=== PATIENT | female | born 1935 | race Caucasian/White ===

== ENCOUNTER 2018-07-30 15:03 | Inpatient (IN) | payer MEDICARE, OTHER, MEDICAID ==
[2018-07-30] MEDS: DILTIAZEM-D5W 125MG/125ML DRIP 125 ML IV (15:10)
[2018-07-30 15:35] LABS: ADD MAN DIFF? NO
[2018-07-30] MEDS: SODIUM CHLORIDE 0.9% 1L BAG IV* (15:36)
[2018-07-30] MEDS: ACETAMINOPHEN 325 MG TAB PO (15:37)
[2018-07-30] MEDS: IBUPROFEN 800 MG TAB PO (15:37)
[2018-07-30] MEDS: ONDANSETRON 4 MG INJ IV (15:38)
[2018-07-30] MEDS: DILTIAZEM 25 MG INJ IV (15:38)
[2018-07-30 15:46] LABS: BASOPHILS % 0.1 % (0.0-2.0); HEMATOCRIT 32.3 % (37.0-47.0); HEMOGLOBIN 10.6 g/dl (12.0-16.0); LYMPHOCYTES % 9.2 % (15.0-51.0); MEAN CORPUSCULAR HGB CONC 32.8 g/dl (32.0-37.0); MEAN CORPUSCULAR VOLUME 97.6 fl (82.0-101.0); MEAN PLATELET VOLUME 8.8 fl (7.4-10.4); MONOCYTE # 0.7 10^3/ul (0.3-0.9); MONOCYTES % 6.5 % (0.0-11.0); NEUTROPHIL # 8.7 10^3/ul (1.6-7.5); NEUTROPHILS % 83.8 % (39.0-77.0); PLATELET COUNT 234 10^3/UL (140-415); RED BLOOD COUNT 3.31 10^6/ul (4.20-5.40); RED CELL DISTRIBUTION WIDTH 12.8 % (11.5-14.5)
[2018-07-30 15:46] LABS: WHITE BLOOD COUNT 10.4 10^3/ul (4.8-10.8)
[2018-07-30 16:04] LABS: ALANINE AMINOTRANSFERASE 11 IU/L (13-69); ALBUMIN 3.8 g/dl (3.3-4.9); ALKALINE PHOSPHATASE 78 IU/L (42-121); ANION GAP 10 (5-13); ASPARTATE AMINO TRANSFERASE 26 IU/L (15-46); BILIRUBIN,INDIRECT 0.3 mg/dl (0-1.1); BILIRUBIN,TOTAL 0.3 mg/dl (0.2-1.3); BLOOD UREA NITROGEN 20 mg/dl (7-20); CALCIUM 9.1 mg/dl (8.4-10.2); CARBON DIOXIDE 23 mmol/L (21-31); CHLORIDE 107 mmol/L (97-110); CREATININE 0.84 mg/dl (0.44-1.00); GLUCOSE 179 mg/dl (70-220); POTASSIUM 4.1 mmol/L (3.5-5.1); SODIUM 140 mmol/L (135-144); TOTAL PROTEIN 7.6 g/dl (6.1-8.1)
[2018-07-30 16:06] LABS: INR 1.06; PROTIME 13.9 Sec (11.9-14.9); PT RATIO 1.1
[2018-07-30 16:07] LABS: PARTIAL THROMBOPLASTIN TIME 26.3 Sec (23.0-35.0)
[2018-07-30 16:15] LABS: TROPONIN-I 0.066 ng/ml (0.000-0.120)
[2018-07-30] MEDS: CEFEPIME 2GM/50 ML (PMX) 50 ML IVPB (17:18)
[2018-07-30] MEDS ORDERED: ACETAMINOPHEN 325 MG TAB PO ×2 (17:30→19:30)
[2018-07-30 17:32] LABS: ADD UMIC YES; UR ASCORBIC ACID NEGATIVE (NEGATIVE); UR BILIRUBIN (Dip) NEGATIVE (NEGATIVE); UR BLOOD (Dip) 1+ mg/dL (NEGATIVE); UR CLARITY SLIGHTLY CLOUDY (CLEAR); UR COLOR YELLOW (YELLOW); UR GLUCOSE (Dip) NEGATIVE (NEGATIVE); UR KETONES (Dip) NEGATIVE (NEGATIVE); UR LEUKOCYTE ESTERASE (Dip) 2+ Leu/ul (NEGATIVE); UR MUCUS FEW /HPF (NONE SEEN); UR NITRITE (Dip) NEGATIVE (NEGATIVE); UR RBC 9 /HPF (0-5); UR SPECIFIC GRAVITY (Dip) 1.019 (1.003-1.030); UR SQUAMOUS EPITHELIAL CELL FEW /HPF (FEW); UR TOTAL PROTEIN (Dip) 1+ mg/dl (NEGATIVE); UR UROBILINOGEN (Dip) 1+ mg/dL (NEGATIVE); UR WBC 49 /HPF (0-5)
[2018-07-30] MEDS: VANCOMYCIN 1 GM (PMX) 250 ML IVPB (17:47)
[2018-07-30] MEDS: SOD CHLORIDE 0.9% 1,000 ML IV ×2 (18:36→19:11)
[2018-07-30] MEDS ORDERED: ONDANSETRON 4 MG INJ IV (19:30)
[2018-07-30] MEDS ORDERED: NACL 0.9% 3 ML SYG IV (19:30)
[2018-07-30] MEDS ORDERED: AZITHROMYCIN 500MG/NS (PMX) 250 ML IVPB (20:00)
[2018-07-30 20:09] LABS: LACTIC ACID 1.2 mmol/L (0.5-2.0)
[2018-07-30] MEDS: CEFTRIAXONE 1 GM/50 ML (PMX) 50 ML IVPB (22:00)
[2018-07-30] MEDS: HYDROCODONE/APAP (5/325) TAB PO (22:07)
[2018-07-30] MEDS: INSULIN ASPART [NOVOLOG] 3 ML PEN SC (23:28)
[2018-07-30] MEDS: morphine 2 MG INJ IV (23:33)
[2018-07-30 23:57] LABS: AADO2 Arterial 275.6 mmHg (7.0-24.0); Allen Test ACCEPTAB; Arterial Base Excess -20.5 mmol/L (-3.0-3); Arterial Blood Gas Oxygen Sat 95.1 mmHG (95.0-100.0); Arterial COHb 0.2 % (0.0-3.0); Arterial Fraction of Oxyhgb 94.8 % (93.0-99.0); Arterial MetHb 0.1 % (0.0-1.5); MODE MASK - SIMPLE; Site Right Radial
[2018-07-31] MEDS ORDERED: NITROGLYCERIN (SL) 0.4 MG TAB SL
[2018-07-31] MEDS: ALBUTEROL/IPRATROPIUM (NEB) 3 ML AMP HHN ×5 (00:08→20:56)
[2018-07-31] MEDS: SOD CHLORIDE 0.9% 500 ML IV (00:15)
[2018-07-31] MEDS: NA BICARBONATE 8.4% 50 ML SYG IV ×2 (00:17→12:57)
[2018-07-31] MEDS ORDERED: PIPER-TAZO 3.375 GM IV (PMX) 100 ML IVPB (00:30)
[2018-07-31] MEDS: PIPER-TAZO 2.25 GM/NS 50 ML IVPB ×4 (00:33→17:37)
[2018-07-31 01:30] LABS: ALANINE AMINOTRANSFERASE 52 IU/L (13-69); ALBUMIN 2.5 g/dl (3.3-4.9); ALBUMIN/GLOBULIN RATIO 0.92; ALKALINE PHOSPHATASE 77 IU/L (42-121); ANION GAP 13 (5-13); ASPARTATE AMINO TRANSFERASE 65 IU/L (15-46); BILIRUBIN,INDIRECT 0.2 mg/dl (0-1.1); BILIRUBIN,TOTAL 0.2 mg/dl (0.2-1.3); BLOOD UREA NITROGEN 23 mg/dl (7-20); CALCIUM 7.7 mg/dl (8.4-10.2); CARBON DIOXIDE 19 mmol/L (21-31); CHLORIDE 112 mmol/L (97-110); CREATININE 1.22 mg/dl (0.44-1.00); GLUCOSE 300 mg/dl (70-220); POTASSIUM 4.8 mmol/L (3.5-5.1); SODIUM 144 mmol/L (135-144); TOTAL PROTEIN 5.2 g/dl (6.1-8.1)
[2018-07-31 01:35] LABS: LACTIC ACID 7.9 mmol/L (0.5-2.0)
[2018-07-31 01:38] LABS: B-TYPE NATRIURETIC PEPTIDE 13500 PG/ML (0-450)
[2018-07-31] MEDS: ACCU-CHEK XX (01:41)
[2018-07-31] MEDS: INSULIN ASPART [NOVOLOG] 3 ML PEN SC ×5 (01:55→20:24)
[2018-07-31] MEDS ORDERED: HEPARIN 1000 UNITS/ML 10 ML INJ IV (02:00)
[2018-07-31] MEDS ORDERED: HEPARIN 25000 UNITS/250 ML 250 ML (02:06)
[2018-07-31 02:20] LABS: ADD MAN DIFF? NO
[2018-07-31] MEDS: METHYLPREDNISOLONE 125 MG INJ IV (02:20)
[2018-07-31] MEDS: HEPARIN 1000 UNITS/ML 10 ML INJ IV (02:21)
[2018-07-31 02:24] LABS: BASOPHILS % 0.2 % (0.0-2.0); HEMATOCRIT 30.9 % (37.0-47.0); HEMOGLOBIN 9.7 g/dl (12.0-16.0); LYMPHOCYTES # 1.9 10^3/ul (0.8-2.9); LYMPHOCYTES % 14.3 % (15.0-51.0); MEAN CORPUSCULAR HEMOGLOBIN 32.1 pg (29.0-33.0); MEAN CORPUSCULAR HGB CONC 31.4 g/dl (32.0-37.0); MEAN CORPUSCULAR VOLUME 102.3 fl (82.0-101.0); MEAN PLATELET VOLUME 9.4 fl (7.4-10.4); MONOCYTE # 0.9 10^3/ul (0.3-0.9); MONOCYTES % 7.2 % (0.0-11.0); NEUTROPHILS % 77.4 % (39.0-77.0); PLATELET COUNT 192 10^3/UL (140-415); RED BLOOD COUNT 3.02 10^6/ul (4.20-5.40); RED CELL DISTRIBUTION WIDTH 13.2 % (11.5-14.5)
[2018-07-31] MEDS: HEPARIN 25000 UNITS/250 ML 250 ML IV (02:24)
[2018-07-31 02:35] LABS: AADO2 Arterial 296.7 mmHg (7.0-24.0); Allen Test ACCEPTAB; Arterial Base Excess -10.6 mmol/L (-3.0-3); Arterial COHb 0.2 % (0.0-3.0); Arterial Fraction of Oxyhgb 95.5 % (93.0-99.0); Arterial HCO3 15.5 mmol/L (22.0-26.0); Arterial MetHb 0.3 % (0.0-1.5); Arterial pCO2 35.2 mmhg (35-45); MODE SIMPLE MASK; Site Right Radial
[2018-07-31 02:46] LABS: INR 1.45; PROTIME 17.7 Sec (11.9-14.9); PT RATIO 1.4
[2018-07-31 02:47] LABS: PARTIAL THROMBOPLASTIN TIME 28.9 Sec (23.0-35.0)
[2018-07-31] MEDS: ONDANSETRON 4 MG INJ IV (04:49)
[2018-07-31] MEDS: SOD CHLORIDE 0.9% 1,000 ML IV ×2 (04:54→06:00)
[2018-07-31 05:25] LABS: ADD MAN DIFF? NO
[2018-07-31 05:32] LABS: WHITE BLOOD COUNT 10.4 10^3/ul (4.8-10.8)
[2018-07-31 05:32] LABS: BASOPHILS % 0.1 % (0.0-2.0); HEMATOCRIT 31.7 % (37.0-47.0); HEMOGLOBIN 9.9 g/dl (12.0-16.0); LYMPHOCYTES # 1.4 10^3/ul (0.8-2.9); LYMPHOCYTES % 13.7 % (15.0-51.0); MEAN CORPUSCULAR HEMOGLOBIN 32.9 pg (29.0-33.0); MEAN CORPUSCULAR HGB CONC 31.2 g/dl (32.0-37.0); MEAN CORPUSCULAR VOLUME 105.3 fl (82.0-101.0); MEAN PLATELET VOLUME 9.6 fl (7.4-10.4); MONOCYTE # 0.6 10^3/ul (0.3-0.9); MONOCYTES % 5.5 % (0.0-11.0); NEUTROPHIL # 8.3 10^3/ul (1.6-7.5); NEUTROPHILS % 80.1 % (39.0-77.0); PLATELET COUNT 167 10^3/UL (140-415); RED BLOOD COUNT 3.01 10^6/ul (4.20-5.40); RED CELL DISTRIBUTION WIDTH 13.2 % (11.5-14.5)
[2018-07-31 05:41] LABS: HEMOGLOBIN A1C 5.7 % (0-5.9)
[2018-07-31 05:57] LABS: ANION GAP 18 (5-13); BLOOD UREA NITROGEN 22 mg/dl (7-20); CALCIUM 7.3 mg/dl (8.4-10.2); CARBON DIOXIDE 16 mmol/L (21-31); CHLORIDE 109 mmol/L (97-110); CHOL/HDL RATIO 2.4 RATIO; CHOLESTEROL 71 mg/dl (100-200); CREATININE 1.47 mg/dl (0.44-1.00); GLUCOSE 264 mg/dl (70-220); HDL CHOLESTEROL 29 mg/dl (33-92); LDL CHOLESTEROL,CALCULATED 28 mg/dl; MAGNESIUM 1.8 mg/dl (1.7-2.5); PHOSPHORUS 4.8 mg/dl (2.5-4.9); SODIUM 143 mmol/L (135-144); TRIGLYCERIDES 69 mg/dl (0-149)
[2018-07-31 06:10] LABS: FREE THYROXINE INDEX (Calc) 3.62 ug/ml (0.65-3.89); T3 UPTAKE 52.5 % (23.5-40.5); T4 (THYROXINE) 6.9 ug/dl (5.5-11.0)
[2018-07-31] MEDS ORDERED: ALBUTEROL/IPRATROPIUM (NEB) 3 ML AMP HHN ×2 (08:00)
[2018-07-31] MEDS: ASPIRIN 81 MG TAB PO (09:00)
[2018-07-31] MEDS ORDERED: ENOXAPARIN 40 MG/0.4 ML SYG SC (09:00)
[2018-07-31 09:09] LABS: PARTIAL THROMBOPLASTIN TIME 126.1 Sec (23.0-35.0)
[2018-07-31] MEDS: BUDESONIDE (NEB) 0.5MG/2ML AMP HHN ×2 (09:59→20:56)
[2018-07-31] MEDS: MAGNESIUM SULFATE 2 GM/50 ML 50 ML IVPB (11:21)
[2018-07-31] MEDS: morphine 2 MG INJ IV ×2 (11:21→11:59)
[2018-07-31 11:22] LABS: LACTIC ACID 2.9 mmol/L (0.5-2.0)
[2018-07-31 12:09] LABS: AADO2 Arterial 234.6 mmHg (7.0-24.0); Allen Test ACCEPTAB; Arterial Base Excess -9.1 mmol/L (-3.0-3); Arterial Blood Gas Oxygen Sat 92.1 mmHG (95.0-100.0); Arterial COHb 0 % (0.0-3.0); Arterial Fraction of Oxyhgb 92.1 % (93.0-99.0); Arterial MetHb 0 % (0.0-1.5); Arterial pCO2 43.5 mmhg (35-45); MODE MASK - VENTI; Site Left Radial
[2018-07-31] MEDS: INSULIN GLARGINE [LANTus] (100 UNITS/ML) SYG SC (14:14)
[2018-07-31] MEDS: SODIUM BICARBONATE (IV ADD) 100 MEQ in SOD CHLORIDE 0.45% 1,000 ML IV (16:35)
[2018-07-31 16:42] LABS: SODIUM,URINE RANDOM 56 mmol/L (30-90)
[2018-07-31 16:44] LABS: CREATININE,URINE RANDOM 135.23 mg/dl (20-320); PROTEIN/CREAT RATIO 0.85 RATIO
[2018-07-31 16:45] LABS: LACTIC ACID 1.6 mmol/L (0.5-2.0)
[2018-07-31 17:08] LABS: PARTIAL THROMBOPLASTIN TIME 113.2 Sec (23.0-35.0)
[2018-07-31] MEDS: CLOPIDOGREL 75 MG TAB PO (17:17)
[2018-07-31] MEDS: ATORVASTATIN 80 MG TAB PO (20:21)
[2018-08-01] MEDS: PIPER-TAZO 2.25 GM/NS 50 ML IVPB ×5 (00:10→23:52)
[2018-08-01 00:41] LABS: PARTIAL THROMBOPLASTIN TIME 47.3 Sec (23.0-35.0)
[2018-08-01] MEDS: ACCU-CHEK XX (02:07)
[2018-08-01] MEDS: ALBUTEROL/IPRATROPIUM (NEB) 3 ML AMP HHN ×5 (02:58→19:29)
[2018-08-01 05:13] LABS: ADD MAN DIFF? NO
[2018-08-01] MEDS: SODIUM BICARBONATE (IV ADD) 100 MEQ in SOD CHLORIDE 0.45% 1,000 ML IV (05:15)
[2018-08-01 05:17] LABS: BASOPHILS % 0.2 % (0.0-2.0); HEMATOCRIT 28.3 % (37.0-47.0); HEMOGLOBIN 9.4 g/dl (12.0-16.0); LYMPHOCYTES % 7.5 % (15.0-51.0); MEAN CORPUSCULAR HEMOGLOBIN 32.4 pg (29.0-33.0); MEAN CORPUSCULAR HGB CONC 33.2 g/dl (32.0-37.0); MEAN CORPUSCULAR VOLUME 97.6 fl (82.0-101.0); MEAN PLATELET VOLUME 10.1 fl (7.4-10.4); MONOCYTE # 0.5 10^3/ul (0.3-0.9); MONOCYTES % 4.1 % (0.0-11.0); NEUTROPHIL # 11.1 10^3/ul (1.6-7.5); NEUTROPHILS % 87.1 % (39.0-77.0); PLATELET COUNT 158 10^3/UL (140-415)
[2018-08-01 05:17] LABS: WHITE BLOOD COUNT 12.7 10^3/ul (4.8-10.8)
[2018-08-01 05:34] LABS: INR 1.75; PROTIME 20.5 Sec (11.9-14.9); PT RATIO 1.6
[2018-08-01 05:43] LABS: CREATINE KINASE 143 IU/L (23-200)
[2018-08-01] MEDS: morphine 2 MG INJ IV (05:50)
[2018-08-01 05:51] LABS: ANION GAP 13 (5-13); BLOOD UREA NITROGEN 27 mg/dl (7-20); CALCIUM 7.9 mg/dl (8.4-10.2); CARBON DIOXIDE 26 mmol/L (21-31); CHLORIDE 103 mmol/L (97-110); CREATINE KINASE 142 IU/L (23-200); CREATININE 1.41 mg/dl (0.44-1.00); GLUCOSE 161 mg/dl (70-220); MAGNESIUM 2.2 mg/dl (1.7-2.5); POTASSIUM 3.9 mmol/L (3.5-5.1); SODIUM 142 mmol/L (135-144)
[2018-08-01 05:51] LABS: URIC ACID 6.9 mg/dl (3.1-7.9)
[2018-08-01 05:56] LABS: CK INDEX 4.9; CK-MB 7.02 ng/ml (0.0-2.4)
[2018-08-01 06:48] LABS: PARTIAL THROMBOPLASTIN TIME 55.5 Sec (23.0-35.0)
[2018-08-01 07:34] LABS: AADO2 Arterial 172.2 mmHg (7.0-24.0); Arterial Base Excess -0.7 mmol/L (-3.0-3); Arterial Blood Gas Oxygen Sat 90.5 mmHG (95.0-100.0); Arterial COHb 0.1 % (0.0-3.0); Arterial Fraction of Oxyhgb 90.4 % (93.0-99.0); Arterial HCO3 23.9 mmol/L (22.0-26.0); Arterial MetHb 0 % (0.0-1.5); MODE NASAL CANNULA; Site Right Brachial
[2018-08-01] MEDS: INSULIN ASPART [NOVOLOG] 3 ML PEN SC ×4 (08:37→21:02)
[2018-08-01] MEDS: ASPIRIN 81 MG TAB PO ×2 (08:37→08:50)
[2018-08-01] MEDS: INSULIN GLARGINE [LANTus] (100 UNITS/ML) SYG SC (08:37)
[2018-08-01] MEDS: BUDESONIDE (NEB) 0.5MG/2ML AMP HHN ×2 (09:17→19:29)
[2018-08-01] MEDS ORDERED: LIDOCAINE 1% (MDV) 20 ML INJ (10:04)
[2018-08-01] MEDS ORDERED: IODIXANOL LOCM 100 ML BTL (10:04)
[2018-08-01] MEDS ORDERED: MIDAZOLAM 1 MG/ML 2 ML INJ (10:05)
[2018-08-01] MEDS ORDERED: FENTAnyl 50 MCG/ML VIAL (10:05)
[2018-08-01] MEDS ORDERED: FUROSEMIDE 40 MG INJ (10:56)
[2018-08-01] MEDS: HOLD all METFORMIN and METFORMIN CONTAINING medications for 48 hours post procedure. Chec XX (11:30)
[2018-08-01] MEDS: SOD CHLORIDE 0.9% 1,000 ML IV (11:47)
[2018-08-01] MEDS ORDERED: GLUCOSE GEL 15 GRAM TUBE BUCCAL (12:00)
[2018-08-01] MEDS ORDERED: DEXTROSE 50% 50 ML SYRINGE IV ×2 (12:00)
[2018-08-01] MEDS ORDERED: GLUCOSE GEL 15 GRAM TUBE PO ×2 (12:00)
[2018-08-01] MEDS ORDERED: GLUCAGON 1 MG INJ IM (12:00)
[2018-08-01] MEDS: ATORVASTATIN 80 MG TAB PO (21:01)
[2018-08-01] MEDS: FUROSEMIDE 40 MG INJ IV (21:33)
[2018-08-02] MEDS: ALBUTEROL/IPRATROPIUM (NEB) 3 ML AMP HHN ×4 (01:07→20:15)
[2018-08-02] MEDS: ACCU-CHEK XX (01:44)
[2018-08-02] MEDS: INSULIN ASPART [NOVOLOG] 3 ML PEN SC ×5 (02:13→21:00)
[2018-08-02 03:51] LABS: ADD MAN DIFF? NO
[2018-08-02] MEDS ORDERED: METOPROLOL 5 MG INJ (03:58)
[2018-08-02] MEDS: METOPROLOL 5 MG INJ IV ×3 (04:04→05:34)
[2018-08-02 04:10] LABS: WHITE BLOOD COUNT 11.7 10^3/ul (4.8-10.8)
[2018-08-02 04:10] LABS: BASOPHILS % 0.1 % (0.0-2.0); HEMATOCRIT 28.2 % (37.0-47.0); HEMOGLOBIN 9.3 g/dl (12.0-16.0); LYMPHOCYTES % 8.6 % (15.0-51.0); MEAN CORPUSCULAR HEMOGLOBIN 32.2 pg (29.0-33.0); MEAN CORPUSCULAR VOLUME 97.6 fl (82.0-101.0); MEAN PLATELET VOLUME 10.3 fl (7.4-10.4); MONOCYTE # 0.6 10^3/ul (0.3-0.9); MONOCYTES % 5.4 % (0.0-11.0); NEUTROPHILS % 85.1 % (39.0-77.0); PLATELET COUNT 154 10^3/UL (140-415); RED BLOOD COUNT 2.89 10^6/ul (4.20-5.40); RED CELL DISTRIBUTION WIDTH 13.4 % (11.5-14.5)
[2018-08-02 04:19] LABS: PHOSPHORUS 3.1 mg/dl (2.5-4.9)
[2018-08-02 04:19] LABS: MAGNESIUM 1.9 mg/dl (1.7-2.5)
[2018-08-02 04:20] LABS: ANION GAP 12 (5-13); BLOOD UREA NITROGEN 29 mg/dl (7-20); CALCIUM 8.7 mg/dl (8.4-10.2); CARBON DIOXIDE 32 mmol/L (21-31); CHLORIDE 98 mmol/L (97-110); CREATININE 1.36 mg/dl (0.44-1.00); GLUCOSE 150 mg/dl (70-220); POTASSIUM 3.7 mmol/L (3.5-5.1); SODIUM 142 mmol/L (135-144)
[2018-08-02] MEDS: morphine 2 MG INJ IV ×2 (04:32→13:38)
[2018-08-02] MEDS: PIPER-TAZO 2.25 GM/NS 50 ML IVPB ×3 (05:59→17:11)
[2018-08-02] MEDS ORDERED: DIGOXIN 500 MCG INJ IV ×2 (07:00→11:00)
[2018-08-02] MEDS: AMIODARONE 150MG/D5W BOLUS 100 ML IV (08:09)
[2018-08-02] MEDS: ASPIRIN 81 MG TAB PO (08:13)
[2018-08-02] MEDS: POTASSIUM CHLORIDE (SR) 20 MEQ TAB PO (08:13)
[2018-08-02] MEDS: AMIODARONE 900 MG in DEXTROSE 5% 482 ML IV (08:21)
[2018-08-02] MEDS: INSULIN GLARGINE [LANTus] (100 UNITS/ML) SYG SC (08:28)
[2018-08-02] MEDS: ENOXAPARIN 60 MG/0.6 ML SYG SC ×2 (08:28→21:12)
[2018-08-02] MEDS: BUDESONIDE (NEB) 0.5MG/2ML AMP HHN ×2 (08:31→20:15)
[2018-08-02] MEDS: HOLD all METFORMIN and METFORMIN CONTAINING medications for 48 hours post procedure. Chec XX (11:30)
[2018-08-02] MEDS: FUROSEMIDE 40 MG INJ IV (14:20)
[2018-08-02] MEDS: ATORVASTATIN 80 MG TAB PO (21:00)
[2018-08-03] MEDS: PIPER-TAZO 2.25 GM/NS 50 ML IVPB ×5 (00:14→23:31)
[2018-08-03] MEDS: ALBUTEROL/IPRATROPIUM (NEB) 3 ML AMP HHN ×4 (01:27→20:05)
[2018-08-03] MEDS: ACCU-CHEK XX (02:00)
[2018-08-03 05:01] LABS: ADD MAN DIFF? NO
[2018-08-03 05:03] LABS: BASOPHILS % 0.1 % (0.0-2.0); EOSINOPHILS % 0.2 % (0.0-7.0); HEMATOCRIT 30.6 % (37.0-47.0); HEMOGLOBIN 9.9 g/dl (12.0-16.0); LYMPHOCYTES # 0.9 10^3/ul (0.8-2.9); MEAN CORPUSCULAR HGB CONC 32.4 g/dl (32.0-37.0); MEAN PLATELET VOLUME 10.2 fl (7.4-10.4); MONOCYTE # 0.6 10^3/ul (0.3-0.9); MONOCYTES % 6.4 % (0.0-11.0); NEUTROPHIL # 7.1 10^3/ul (1.6-7.5); NEUTROPHILS % 82.7 % (39.0-77.0); NUCLEATED RED BLOOD CELLS% 0.2 /100WBC (0.0-0.0); PLATELET COUNT 143 10^3/UL (140-415); RED BLOOD COUNT 3.09 10^6/ul (4.20-5.40); RED CELL DISTRIBUTION WIDTH 13.3 % (11.5-14.5)
[2018-08-03 05:03] LABS: WHITE BLOOD COUNT 8.5 10^3/ul (4.8-10.8)
[2018-08-03 05:23] LABS: INR 1.61; PROTIME 19.2 Sec (11.9-14.9); PT RATIO 1.5
[2018-08-03 05:53] LABS: CREATINE KINASE 108 IU/L (23-200)
[2018-08-03 05:56] LABS: ALBUMIN 3.2 g/dl (3.3-4.9); ALBUMIN/GLOBULIN RATIO 0.91; ALKALINE PHOSPHATASE 150 IU/L (42-121); ANION GAP 10 (5-13); BILIRUBIN,INDIRECT 0.4 mg/dl (0-1.1); BILIRUBIN,TOTAL 0.4 mg/dl (0.2-1.3); BLOOD UREA NITROGEN 28 mg/dl (7-20); CALCIUM 8.6 mg/dl (8.4-10.2); CARBON DIOXIDE 32 mmol/L (21-31); CHLORIDE 100 mmol/L (97-110); CREATININE 1.08 mg/dl (0.44-1.00); GLUCOSE 77 mg/dl (70-220); MAGNESIUM 1.6 mg/dl (1.7-2.5); POTASSIUM 3.3 mmol/L (3.5-5.1); SODIUM 142 mmol/L (135-144); TOTAL PROTEIN 6.7 g/dl (6.1-8.1)
[2018-08-03 06:03] LABS: B-TYPE NATRIURETIC PEPTIDE 22400 PG/ML (0-450)
[2018-08-03 06:05] LABS: CK INDEX 3.2
[2018-08-03 06:22] LABS: ALANINE AMINOTRANSFERASE 2059 IU/L (13-69); ASPARTATE AMINO TRANSFERASE 949 IU/L (15-46)
[2018-08-03] MEDS: ASPIRIN 81 MG TAB PO (08:11)
[2018-08-03] MEDS: INSULIN GLARGINE [LANTus] (100 UNITS/ML) SYG SC (09:00)
[2018-08-03] MEDS: BUDESONIDE (NEB) 0.5MG/2ML AMP HHN ×2 (09:00→20:05)
[2018-08-03 09:21] LABS: AADO2 Arterial 314.4 mmHg (7.0-24.0); Allen Test ACCEPTAB; Arterial Blood Gas Oxygen Sat 92.4 mmHG (95.0-100.0); Arterial COHb 0.3 % (0.0-3.0); Arterial Fraction of Oxyhgb 92.1 % (93.0-99.0); Arterial MetHb 0 % (0.0-1.5); Arterial pCO2 38.5 mmhg (35-45); MODE MASK - BIPAP; Site Right Radial
[2018-08-03] MEDS: POTASSIUM CHLORIDE 100 ML IVPB (09:24)
[2018-08-03] MEDS: MAGNESIUM SULFATE 2 GM/50 ML 50 ML IVPB ×2 (09:25→13:02)
[2018-08-03] MEDS: FUROSEMIDE 40 MG INJ IV ×2 (09:25→18:31)
[2018-08-03] MEDS: ENOXAPARIN 60 MG/0.6 ML SYG SC ×2 (09:30→20:38)
[2018-08-03] MEDS: AMIODARONE 150MG/D5W BOLUS 100 ML IV (10:33)
[2018-08-03] MEDS: DILTIAZEM 25 MG INJ IV ×2 (10:33→17:21)
[2018-08-03] MEDS: AMIODARONE 900 MG in DEXTROSE 5% 482 ML IV (10:47)
[2018-08-03] MEDS: INSULIN ASPART [NOVOLOG] 3 ML PEN SC ×3 (12:00→23:30)
[2018-08-03] MEDS: POTASSIUM CHLORIDE 50 ML IVPB ×4 (12:30→19:46)
[2018-08-03] MEDS ORDERED: DILTIAZEM-D5W 125MG/125ML DRIP 125 ML IV (17:30)
[2018-08-03] MEDS: ATORVASTATIN 80 MG TAB PO (20:34)
[2018-08-04] MEDS: ALBUTEROL/IPRATROPIUM (NEB) 3 ML AMP HHN ×4 (01:11→19:57)
[2018-08-04 05:21] LABS: ADD MAN DIFF? NO
[2018-08-04 05:29] LABS: WHITE BLOOD COUNT 8.5 10^3/ul (4.8-10.8)
[2018-08-04 05:29] LABS: BASOPHILS % 0.1 % (0.0-2.0); EOSINOPHILS # 0.1 10^3/ul (0.0-0.5); EOSINOPHILS % 0.7 % (0.0-7.0); HEMATOCRIT 29.8 % (37.0-47.0); HEMOGLOBIN 9.6 g/dl (12.0-16.0); LYMPHOCYTES # 0.8 10^3/ul (0.8-2.9); LYMPHOCYTES % 9.2 % (15.0-51.0); MEAN CORPUSCULAR HEMOGLOBIN 31.5 pg (29.0-33.0); MEAN CORPUSCULAR HGB CONC 32.2 g/dl (32.0-37.0); MEAN CORPUSCULAR VOLUME 97.7 fl (82.0-101.0); MEAN PLATELET VOLUME 9.9 fl (7.4-10.4); MONOCYTE # 0.7 10^3/ul (0.3-0.9); MONOCYTES % 8.6 % (0.0-11.0); NEUTROPHIL # 6.9 10^3/ul (1.6-7.5); NEUTROPHILS % 80.9 % (39.0-77.0); NUCLEATED RED BLOOD CELLS% 0.2 /100WBC (0.0-0.0); PLATELET COUNT 167 10^3/UL (140-415); RED BLOOD COUNT 3.05 10^6/ul (4.20-5.40)
[2018-08-04] MEDS: PIPER-TAZO 2.25 GM/NS 50 ML IVPB ×4 (05:29→23:50)
[2018-08-04] MEDS: FUROSEMIDE 40 MG INJ IV ×2 (05:29→18:04)
[2018-08-04] MEDS: INSULIN ASPART [NOVOLOG] 3 ML PEN SC ×3 (05:35→18:00)
[2018-08-04 06:03] LABS: ALBUMIN 2.8 g/dl (3.3-4.9); ALBUMIN/GLOBULIN RATIO 0.87; ALKALINE PHOSPHATASE 134 IU/L (42-121); ANION GAP 8 (5-13); ASPARTATE AMINO TRANSFERASE 205 IU/L (15-46); BILIRUBIN,INDIRECT 0.6 mg/dl (0-1.1); BILIRUBIN,TOTAL 0.6 mg/dl (0.2-1.3); BLOOD UREA NITROGEN 27 mg/dl (7-20); CALCIUM 8.3 mg/dl (8.4-10.2); CARBON DIOXIDE 32 mmol/L (21-31); CHLORIDE 102 mmol/L (97-110); GLUCOSE 130 mg/dl (70-220); MAGNESIUM 2.2 mg/dl (1.7-2.5); POTASSIUM 3.4 mmol/L (3.5-5.1); SODIUM 142 mmol/L (135-144)
[2018-08-04 06:05] LABS: B-TYPE NATRIURETIC PEPTIDE 17300 PG/ML (0-450)
[2018-08-04 06:19] LABS: ALANINE AMINOTRANSFERASE 1073 IU/L (13-69)
[2018-08-04] MEDS: POTASSIUM CHLORIDE 50 ML IVPB ×2 (06:48→09:48)
[2018-08-04 08:19] LABS: AADO2 Arterial 277.4 mmHg (7.0-24.0); Allen Test ACCEPTAB; Arterial Base Excess 3.8 mmol/L (-3.0-3); Arterial Blood Gas Oxygen Sat 94.1 mmHG (95.0-100.0); Arterial COHb 0.7 % (0.0-3.0); Arterial Fraction of Oxyhgb 93.3 % (93.0-99.0); Arterial HCO3 27.7 mmol/L (22.0-26.0); Arterial MetHb 0.1 % (0.0-1.5); Arterial pCO2 39.4 mmhg (35-45); MODE HFNC; Site Right Radial
[2018-08-04] MEDS: BUDESONIDE (NEB) 0.5MG/2ML AMP HHN ×2 (08:28→19:57)
[2018-08-04] MEDS: INSULIN GLARGINE [LANTus] (100 UNITS/ML) SYG SC (08:42)
[2018-08-04 09:20] LABS: PHOSPHORUS 2.7 mg/dl (2.5-4.9)
[2018-08-04] MEDS: ASPIRIN 81 MG TAB PO (09:48)
[2018-08-04] MEDS: ENOXAPARIN 60 MG/0.6 ML SYG SC ×2 (09:58→20:37)
[2018-08-04 11:47] LABS: PROCALCITONIN 1.43 ng/mL (<0.10)
[2018-08-04] MEDS: POTASSIUM PHOSPHATE 30 MM in SOD CHLORIDE 0.9% 250 ML IVPB (12:51)
[2018-08-04 13:45] LABS: ANION GAP 7 (5-13); BLOOD UREA NITROGEN 28 mg/dl (7-20); CALCIUM 8.4 mg/dl (8.4-10.2); CARBON DIOXIDE 34 mmol/L (21-31); CHLORIDE 101 mmol/L (97-110); CREATININE 1.02 mg/dl (0.44-1.00); GLUCOSE 143 mg/dl (70-220); POTASSIUM 3.9 mmol/L (3.5-5.1); SODIUM 142 mmol/L (135-144)
[2018-08-04] MEDS: AMIODARONE 900 MG in DEXTROSE 5% 482 ML IV (16:54)
[2018-08-04] MEDS: SPIRONOLACTONE 25 MG TAB PO (17:30)
[2018-08-04] MEDS: ATORVASTATIN 80 MG TAB PO (20:37)
[2018-08-04] MEDS: LISINOPRIL 5 MG TAB PO (20:38)
[2018-08-04] MEDS: ENALAPRILAT 2.5 MG INJ IV (23:51)
[2018-08-05] MEDS: INSULIN ASPART [NOVOLOG] 3 ML PEN SC ×3 (00:23→12:35)
[2018-08-05] MEDS: ALBUTEROL/IPRATROPIUM (NEB) 3 ML AMP HHN ×4 (01:35→19:55)
[2018-08-05 05:27] LABS: ADD MAN DIFF? NO
[2018-08-05 05:32] LABS: WHITE BLOOD COUNT 8.9 10^3/ul (4.8-10.8)
[2018-08-05 05:32] LABS: BASOPHILS % 0.3 % (0.0-2.0); EOSINOPHILS # 0.2 10^3/ul (0.0-0.5); HEMOGLOBIN 10.5 g/dl (12.0-16.0); LYMPHOCYTES % 11.1 % (15.0-51.0); MEAN CORPUSCULAR HEMOGLOBIN 31.8 pg (29.0-33.0); MEAN CORPUSCULAR HGB CONC 32.8 g/dl (32.0-37.0); MEAN PLATELET VOLUME 9.6 fl (7.4-10.4); MONOCYTE # 0.9 10^3/ul (0.3-0.9); MONOCYTES % 10.3 % (0.0-11.0); NEUTROPHIL # 6.7 10^3/ul (1.6-7.5); NEUTROPHILS % 75.4 % (39.0-77.0); NUCLEATED RED BLOOD CELLS% 0.2 /100WBC (0.0-0.0); PLATELET COUNT 216 10^3/UL (140-415)
[2018-08-05] MEDS: PIPER-TAZO 2.25 GM/NS 50 ML IVPB ×4 (05:34→23:12)
[2018-08-05] MEDS: FUROSEMIDE 40 MG INJ IV ×2 (05:35→17:29)
[2018-08-05 06:15] LABS: ALANINE AMINOTRANSFERASE 670 IU/L (13-69); ALBUMIN 3.1 g/dl (3.3-4.9); ALBUMIN/GLOBULIN RATIO 0.83; ALKALINE PHOSPHATASE 128 IU/L (42-121); ASPARTATE AMINO TRANSFERASE 78 IU/L (15-46); BILIRUBIN,INDIRECT 0.7 mg/dl (0-1.1); BILIRUBIN,TOTAL 0.7 mg/dl (0.2-1.3); BLOOD UREA NITROGEN 26 mg/dl (7-20); CALCIUM 8.6 mg/dl (8.4-10.2); CARBON DIOXIDE 32 mmol/L (21-31); CREATININE 1.03 mg/dl (0.44-1.00); GLUCOSE 155 mg/dl (70-220); MAGNESIUM 1.6 mg/dl (1.7-2.5); POTASSIUM 3.3 mmol/L (3.5-5.1); SODIUM 141 mmol/L (135-144); TOTAL PROTEIN 6.8 g/dl (6.1-8.1)
[2018-08-05 06:17] LABS: ANION GAP 10 (5-13); CHLORIDE 99 mmol/L (97-110)
[2018-08-05] MEDS ORDERED: POTASSIUM CHLORIDE 50 ML IVPB (07:00)
[2018-08-05] MEDS: BUDESONIDE (NEB) 0.5MG/2ML AMP HHN ×2 (08:55→19:55)
[2018-08-05] MEDS: SPIRONOLACTONE 25 MG TAB PO ×2 (09:00→10:40)
[2018-08-05] MEDS: POTASSIUM CHLORIDE 100 ML IVPB ×2 (09:00→10:41)
[2018-08-05] MEDS: ASPIRIN 81 MG TAB PO ×2 (09:00→10:40)
[2018-08-05] MEDS: LISINOPRIL 5 MG TAB PO ×3 (09:00→20:23)
[2018-08-05] MEDS: AMIODARONE 200 MG TAB PO ×3 (09:00→20:23)
[2018-08-05] MEDS: ENALAPRILAT 2.5 MG INJ IV (09:03)
[2018-08-05] MEDS: ENOXAPARIN 60 MG/0.6 ML SYG SC ×2 (09:09→20:37)
[2018-08-05 13:10] LABS: B-TYPE NATRIURETIC PEPTIDE 10600 PG/ML (0-450)
[2018-08-05] MEDS: MAGNESIUM SULFATE 1 GM/D5W 100 ML IVPB (17:28)
[2018-08-05] MEDS: Insulin NOVOLOG SS MILD Algorithm (SS with meals and bedtime) SC ×2 (18:02→20:37)
[2018-08-05] MEDS: ATORVASTATIN 80 MG TAB PO (20:22)
[2018-08-06] MEDS: ALBUTEROL/IPRATROPIUM (NEB) 3 ML AMP HHN ×4 (01:37→20:08)
[2018-08-06] MEDS: ACCUCHECK AT 2AM (Patients on SS coverage) XX (01:38)
[2018-08-06] MEDS: DILTIAZEM 25 MG INJ IV ×3 (02:00→09:18)
[2018-08-06] MEDS: PIPER-TAZO 2.25 GM/NS 50 ML IVPB ×4 (05:06→23:04)
[2018-08-06] MEDS: FUROSEMIDE 40 MG INJ IV ×2 (05:08→17:50)
[2018-08-06 05:09] LABS: ADD MAN DIFF? NO
[2018-08-06 05:18] LABS: WHITE BLOOD COUNT 8.1 10^3/ul (4.8-10.8)
[2018-08-06 05:18] LABS: BASOPHILS % 0.4 % (0.0-2.0); EOSINOPHILS # 0.2 10^3/ul (0.0-0.5); EOSINOPHILS % 2.3 % (0.0-7.0); HEMOGLOBIN 10.9 g/dl (12.0-16.0); LYMPHOCYTES # 1.2 10^3/ul (0.8-2.9); LYMPHOCYTES % 14.1 % (15.0-51.0); MEAN CORPUSCULAR HEMOGLOBIN 31.4 pg (29.0-33.0); MEAN CORPUSCULAR HGB CONC 32.1 g/dl (32.0-37.0); MEAN PLATELET VOLUME 9.8 fl (7.4-10.4); MONOCYTE # 0.8 10^3/ul (0.3-0.9); MONOCYTES % 10.2 % (0.0-11.0); NEUTROPHIL # 5.8 10^3/ul (1.6-7.5); NEUTROPHILS % 71.6 % (39.0-77.0); NUCLEATED RED BLOOD CELLS% 0.2 /100WBC (0.0-0.0); PLATELET COUNT 228 10^3/UL (140-415); RED BLOOD COUNT 3.47 10^6/ul (4.20-5.40)
[2018-08-06 05:47] LABS: ALANINE AMINOTRANSFERASE 469 IU/L (13-69); ALBUMIN 3.3 g/dl (3.3-4.9); ALBUMIN/GLOBULIN RATIO 0.89; ALKALINE PHOSPHATASE 126 IU/L (42-121); ANION GAP 11 (5-13); ASPARTATE AMINO TRANSFERASE 62 IU/L (15-46); BILIRUBIN,INDIRECT 0.7 mg/dl (0-1.1); BILIRUBIN,TOTAL 0.7 mg/dl (0.2-1.3); BLOOD UREA NITROGEN 30 mg/dl (7-20); CARBON DIOXIDE 35 mmol/L (21-31); CHLORIDE 99 mmol/L (97-110); CREATININE 1.07 mg/dl (0.44-1.00); GLUCOSE 166 mg/dl (70-220); MAGNESIUM 1.8 mg/dl (1.7-2.5); POTASSIUM 3.9 mmol/L (3.5-5.1); SODIUM 145 mmol/L (135-144)
[2018-08-06] MEDS: SPIRONOLACTONE 25 MG TAB PO (08:11)
[2018-08-06] MEDS: AMIODARONE 200 MG TAB PO (08:12)
[2018-08-06] MEDS: ASPIRIN 81 MG TAB PO (08:12)
[2018-08-06] MEDS: DOCUSATE SODIUM 100 MG CAP PO (08:12)
[2018-08-06] MEDS: LISINOPRIL 5 MG TAB PO ×2 (08:13→20:45)
[2018-08-06] MEDS: ENOXAPARIN 60 MG/0.6 ML SYG SC (08:24)
[2018-08-06] MEDS: Insulin NOVOLOG SS MILD Algorithm (SS with meals and bedtime) SC ×4 (08:30→21:11)
[2018-08-06] MEDS ORDERED: APIXABAN 5 MG TABLET PO (09:00)
[2018-08-06] MEDS: BUDESONIDE (NEB) 0.5MG/2ML AMP HHN ×2 (09:02→20:08)
[2018-08-06] MEDS: MAGNESIUM SULFATE 2 GM/50 ML 50 ML IVPB (09:43)
[2018-08-06] MEDS: AMIODARONE 150MG/D5W BOLUS 100 ML IV (09:58)
[2018-08-06] MEDS: AMIODARONE 900 MG in DEXTROSE 5% 482 ML IV (11:08)
[2018-08-06] MEDS ORDERED: METOPROLOL 25 MG TAB PO (14:00)
[2018-08-06] MEDS: METOPROLOL 25 MG TAB PO ×2 (15:04→20:46)
[2018-08-06] MEDS: ATORVASTATIN 80 MG TAB PO (20:38)
[2018-08-06] MEDS: BISACODYL (EC) 5 MG TAB PO (20:42)
[2018-08-06] MEDS: APIXABAN 5 MG TABLET PO (20:43)
[2018-08-06] MEDS: HYDROCODONE/APAP (5/325) TAB PO (23:33)
[2018-08-07] MEDS: ZOLPIDEM 5 MG TAB PO (01:04)
[2018-08-07] MEDS: ACCUCHECK AT 2AM (Patients on SS coverage) XX (01:20)
[2018-08-07] MEDS: ALBUTEROL/IPRATROPIUM (NEB) 3 ML AMP HHN ×4 (02:00→22:06)
[2018-08-07] MEDS: PIPER-TAZO 2.25 GM/NS 50 ML IVPB ×5 (05:22→23:53)
[2018-08-07] MEDS: FUROSEMIDE 40 MG INJ IV ×2 (05:25→18:25)
[2018-08-07 05:38] LABS: ADD MAN DIFF? NO
[2018-08-07 05:47] LABS: BASOPHILS % 0.4 % (0.0-2.0); EOSINOPHILS # 0.2 10^3/ul (0.0-0.5); EOSINOPHILS % 2.1 % (0.0-7.0); HEMATOCRIT 34.3 % (37.0-47.0); HEMOGLOBIN 10.9 g/dl (12.0-16.0); LYMPHOCYTES # 1.4 10^3/ul (0.8-2.9); LYMPHOCYTES % 15.4 % (15.0-51.0); MEAN CORPUSCULAR HEMOGLOBIN 31.5 pg (29.0-33.0); MEAN CORPUSCULAR HGB CONC 31.8 g/dl (32.0-37.0); MEAN CORPUSCULAR VOLUME 99.1 fl (82.0-101.0); MEAN PLATELET VOLUME 9.7 fl (7.4-10.4); MONOCYTE # 0.8 10^3/ul (0.3-0.9); NEUTROPHIL # 6.6 10^3/ul (1.6-7.5); NEUTROPHILS % 71.6 % (39.0-77.0); PLATELET COUNT 238 10^3/UL (140-415); RED BLOOD COUNT 3.46 10^6/ul (4.20-5.40); RED CELL DISTRIBUTION WIDTH 13.2 % (11.5-14.5)
[2018-08-07 05:47] LABS: WHITE BLOOD COUNT 9.3 10^3/ul (4.8-10.8)
[2018-08-07 06:38] LABS: ALANINE AMINOTRANSFERASE 321 IU/L (13-69); ALBUMIN 3.2 g/dl (3.3-4.9); ALKALINE PHOSPHATASE 118 IU/L (42-121); ANION GAP 11 (5-13); ASPARTATE AMINO TRANSFERASE 46 IU/L (15-46); BILIRUBIN,INDIRECT 0.5 mg/dl (0-1.1); BILIRUBIN,TOTAL 0.5 mg/dl (0.2-1.3); BLOOD UREA NITROGEN 34 mg/dl (7-20); CALCIUM 9.1 mg/dl (8.4-10.2); CARBON DIOXIDE 37 mmol/L (21-31); CHLORIDE 94 mmol/L (97-110); CREATININE 1.27 mg/dl (0.44-1.00); GLUCOSE 164 mg/dl (70-220); MAGNESIUM 1.9 mg/dl (1.7-2.5); POTASSIUM 3.2 mmol/L (3.5-5.1); SODIUM 142 mmol/L (135-144); TOTAL PROTEIN 7.2 g/dl (6.1-8.1)
[2018-08-07] MEDS: BUDESONIDE (NEB) 0.5MG/2ML AMP HHN ×2 (07:34→22:00)
[2018-08-07] MEDS: Insulin NOVOLOG SS MILD Algorithm (SS with meals and bedtime) SC ×4 (08:16→20:56)
[2018-08-07] MEDS: LISINOPRIL 5 MG TAB PO ×2 (08:59→20:58)
[2018-08-07] MEDS: APIXABAN 5 MG TABLET PO ×2 (08:59→20:57)
[2018-08-07] MEDS: ASPIRIN 81 MG TAB PO (08:59)
[2018-08-07] MEDS: SPIRONOLACTONE 25 MG TAB PO (08:59)
[2018-08-07] MEDS: METOPROLOL 25 MG TAB PO (09:00)
[2018-08-07] MEDS: MAGNESIUM OXIDE 400 MG TAB PO (12:43)
[2018-08-07] MEDS: POTASSIUM CHLORIDE (SR) 20 MEQ TAB PO ×2 (12:44→16:46)
[2018-08-07] MEDS: DILTIAZEM 25 MG INJ IV (17:17)
[2018-08-07] MEDS: MAGNESIUM SULFATE 2 GM/50 ML 50 ML IVPB (18:25)
[2018-08-07] MEDS: ATORVASTATIN 80 MG TAB PO (20:57)
[2018-08-07] MEDS: AMIODARONE 200 MG TAB PO (20:57)
[2018-08-07] MEDS: METOPROLOL (XL) 25 MG TAB PO (21:00)
[2018-08-08] MEDS: ACCUCHECK AT 2AM (Patients on SS coverage) XX (02:00)
[2018-08-08] MEDS: ALBUTEROL/IPRATROPIUM (NEB) 3 ML AMP HHN ×4 (02:14→20:36)
[2018-08-08] MEDS: PIPER-TAZO 2.25 GM/NS 50 ML IVPB ×3 (05:20→17:02)
[2018-08-08] MEDS: METOPROLOL (XL) 25 MG TAB PO ×2 (05:22→20:43)
[2018-08-08] MEDS: FUROSEMIDE 40 MG INJ IV ×2 (05:22→17:02)
[2018-08-08 05:28] LABS: ADD MAN DIFF? NO
[2018-08-08 05:33] LABS: BASOPHILS % 0.4 % (0.0-2.0); EOSINOPHILS # 0.1 10^3/ul (0.0-0.5); EOSINOPHILS % 1.2 % (0.0-7.0); HEMATOCRIT 35.5 % (37.0-47.0); HEMOGLOBIN 11.3 g/dl (12.0-16.0); LYMPHOCYTES # 1.4 10^3/ul (0.8-2.9); LYMPHOCYTES % 15.3 % (15.0-51.0); MEAN CORPUSCULAR HGB CONC 31.8 g/dl (32.0-37.0); MEAN CORPUSCULAR VOLUME 97.5 fl (82.0-101.0); MEAN PLATELET VOLUME 9.8 fl (7.4-10.4); MONOCYTE # 0.7 10^3/ul (0.3-0.9); MONOCYTES % 7.7 % (0.0-11.0); NEUTROPHIL # 6.7 10^3/ul (1.6-7.5); NEUTROPHILS % 74.1 % (39.0-77.0); PLATELET COUNT 236 10^3/UL (140-415); RED BLOOD COUNT 3.64 10^6/ul (4.20-5.40); RED CELL DISTRIBUTION WIDTH 13.2 % (11.5-14.5)
[2018-08-08 06:05] LABS: ANION GAP 11 (5-13); BLOOD UREA NITROGEN 33 mg/dl (7-20); CALCIUM 9.6 mg/dl (8.4-10.2); CARBON DIOXIDE 35 mmol/L (21-31); CHLORIDE 95 mmol/L (97-110); CREATININE 1.35 mg/dl (0.44-1.00); GLUCOSE 158 mg/dl (70-220); MAGNESIUM 2.4 mg/dl (1.7-2.5); PHOSPHORUS 4.1 mg/dl (2.5-4.9); POTASSIUM 3.8 mmol/L (3.5-5.1); SODIUM 141 mmol/L (135-144)
[2018-08-08 06:11] LABS: B-TYPE NATRIURETIC PEPTIDE 12100 PG/ML (0-450)
[2018-08-08] MEDS: Insulin NOVOLOG SS MILD Algorithm (SS with meals and bedtime) SC ×4 (07:56→20:44)
[2018-08-08] MEDS: APIXABAN 5 MG TABLET PO ×2 (08:20→20:44)
[2018-08-08] MEDS: AMIODARONE 200 MG TAB PO ×2 (08:28→20:44)
[2018-08-08] MEDS: SPIRONOLACTONE 25 MG TAB PO (08:29)
[2018-08-08] MEDS: LISINOPRIL 5 MG TAB PO ×2 (08:29→20:43)
[2018-08-08] MEDS: BUDESONIDE (NEB) 0.5MG/2ML AMP HHN ×2 (08:45→20:36)
[2018-08-08] MEDS: ASPIRIN 81 MG TAB PO (09:37)
[2018-08-08] MEDS: DIGOXIN 500 MCG INJ IV (10:52)
[2018-08-08] MEDS: POTASSIUM CHLORIDE (SR) 20 MEQ TAB PO (10:52)
[2018-08-08] MEDS: POLYETHYLENE GLYCOL 17 GM PACKET PO (12:16)
[2018-08-08] MEDS: ATORVASTATIN 80 MG TAB PO (20:44)
[2018-08-09] MEDS: PIPER-TAZO 2.25 GM/NS 50 ML IVPB ×4 (00:02→17:41)
[2018-08-09] MEDS: ALBUTEROL/IPRATROPIUM (NEB) 3 ML AMP HHN ×4 (01:32→20:19)
[2018-08-09] MEDS: ACCUCHECK AT 2AM (Patients on SS coverage) XX (02:04)
[2018-08-09] MEDS: FUROSEMIDE 40 MG INJ IV (05:49)
[2018-08-09 05:59] LABS: ADD MAN DIFF? NO
[2018-08-09 06:15] LABS: BASOPHIL # 0.1 10^3/ul (0.0-0.1); BASOPHILS % 0.6 % (0.0-2.0); EOSINOPHILS # 0.1 10^3/ul (0.0-0.5); EOSINOPHILS % 1.2 % (0.0-7.0); HEMATOCRIT 36.1 % (37.0-47.0); HEMOGLOBIN 11.6 g/dl (12.0-16.0); LYMPHOCYTES # 1.7 10^3/ul (0.8-2.9); LYMPHOCYTES % 15.4 % (15.0-51.0); MEAN CORPUSCULAR HEMOGLOBIN 30.9 pg (29.0-33.0); MEAN CORPUSCULAR HGB CONC 32.1 g/dl (32.0-37.0); MEAN CORPUSCULAR VOLUME 96.3 fl (82.0-101.0); MONOCYTE # 0.9 10^3/ul (0.3-0.9); MONOCYTES % 8.2 % (0.0-11.0); NEUTROPHIL # 7.9 10^3/ul (1.6-7.5); NEUTROPHILS % 73.4 % (39.0-77.0); PLATELET COUNT 261 10^3/UL (140-415); RED BLOOD COUNT 3.75 10^6/ul (4.20-5.40); RED CELL DISTRIBUTION WIDTH 13.4 % (11.5-14.5)
[2018-08-09 06:15] LABS: WHITE BLOOD COUNT 10.7 10^3/ul (4.8-10.8)
[2018-08-09 06:46] LABS: B-TYPE NATRIURETIC PEPTIDE 13700 PG/ML (0-450)
[2018-08-09 06:53] LABS: ALANINE AMINOTRANSFERASE 169 IU/L (13-69); ALBUMIN 3.4 g/dl (3.3-4.9); ALBUMIN/GLOBULIN RATIO 0.82; ALKALINE PHOSPHATASE 99 IU/L (42-121); ANION GAP 13 (5-13); ASPARTATE AMINO TRANSFERASE 39 IU/L (15-46); BLOOD UREA NITROGEN 40 mg/dl (7-20); CARBON DIOXIDE 29 mmol/L (21-31); CHLORIDE 98 mmol/L (97-110); GLUCOSE 156 mg/dl (70-220); MAGNESIUM 1.9 mg/dl (1.7-2.5); POTASSIUM 4.3 mmol/L (3.5-5.1); SODIUM 140 mmol/L (135-144); TOTAL PROTEIN 7.5 g/dl (6.1-8.1)
[2018-08-09 06:56] LABS: DIGOXIN < 0.4 ng/ml (1.0-2.0)
[2018-08-09] MEDS ORDERED: ALTEPLASE (CATHFLO) 2 MG INJ CATHETER (07:00)
[2018-08-09 07:27] LABS: BILIRUBIN,INDIRECT 0.4 mg/dl (0-1.1); BILIRUBIN,TOTAL 0.4 mg/dl (0.2-1.3)
[2018-08-09] MEDS: Insulin NOVOLOG SS MILD Algorithm (SS with meals and bedtime) SC ×4 (08:04→20:57)
[2018-08-09] MEDS: BUDESONIDE (NEB) 0.5MG/2ML AMP HHN ×2 (08:05→20:19)
[2018-08-09] MEDS: METOPROLOL (XL) 25 MG TAB PO ×2 (08:24→20:27)
[2018-08-09] MEDS: SPIRONOLACTONE 25 MG TAB PO (08:24)
[2018-08-09] MEDS: APIXABAN 5 MG TABLET PO ×2 (08:24→20:26)
[2018-08-09] MEDS: LISINOPRIL 5 MG TAB PO ×2 (08:25→20:27)
[2018-08-09] MEDS: ASPIRIN 81 MG TAB PO (08:25)
[2018-08-09] MEDS: AMIODARONE 200 MG TAB PO ×2 (08:25→20:26)
[2018-08-09] MEDS: POTASSIUM CHLORIDE (SR) 20 MEQ TAB PO (10:10)
[2018-08-09] MEDS: DIGOXIN 500 MCG INJ IV (10:11)
[2018-08-09] MEDS: AMIODARONE 150MG/D5W BOLUS 100 ML IV (11:06)
[2018-08-09] MEDS: AMIODARONE 200 ML IV ×2 (11:19→23:02)
[2018-08-09] MEDS: FUROSEMIDE 20 MG INJ IV (17:41)
[2018-08-09] MEDS: ATORVASTATIN 80 MG TAB PO (20:26)
[2018-08-10] MEDS: ALBUTEROL/IPRATROPIUM (NEB) 3 ML AMP HHN ×4 (01:37→21:23)
[2018-08-10] MEDS: PIPER-TAZO 2.25 GM/NS 50 ML IVPB ×3 (02:13→11:31)
[2018-08-10] MEDS: ACCUCHECK AT 2AM (Patients on SS coverage) XX (02:13)
[2018-08-10] MEDS: FUROSEMIDE 20 MG INJ IV ×2 (05:30→08:23)
[2018-08-10 06:30] LABS: ADD MAN DIFF? NO
[2018-08-10 06:36] LABS: WHITE BLOOD COUNT 10.1 10^3/ul (4.8-10.8)
[2018-08-10 06:36] LABS: BASOPHIL # 0.1 10^3/ul (0.0-0.1); BASOPHILS % 0.5 % (0.0-2.0); EOSINOPHILS # 0.2 10^3/ul (0.0-0.5); EOSINOPHILS % 1.7 % (0.0-7.0); HEMATOCRIT 35.3 % (37.0-47.0); HEMOGLOBIN 11.3 g/dl (12.0-16.0); LYMPHOCYTES # 1.5 10^3/ul (0.8-2.9); LYMPHOCYTES % 14.9 % (15.0-51.0); MEAN CORPUSCULAR HEMOGLOBIN 31.2 pg (29.0-33.0); MEAN CORPUSCULAR VOLUME 97.5 fl (82.0-101.0); MEAN PLATELET VOLUME 9.6 fl (7.4-10.4); MONOCYTE # 0.8 10^3/ul (0.3-0.9); NEUTROPHIL # 7.5 10^3/ul (1.6-7.5); PLATELET COUNT 282 10^3/UL (140-415); RED BLOOD COUNT 3.62 10^6/ul (4.20-5.40); RED CELL DISTRIBUTION WIDTH 13.5 % (11.5-14.5)
[2018-08-10 06:54] LABS: DIGOXIN 1.6 ng/ml (1.0-2.0)
[2018-08-10 07:01] LABS: B-TYPE NATRIURETIC PEPTIDE 12900 PG/ML (0-450)
[2018-08-10 07:10] LABS: ALANINE AMINOTRANSFERASE 123 IU/L (13-69); ALBUMIN 3.3 g/dl (3.3-4.9); ALKALINE PHOSPHATASE 103 IU/L (42-121); ANION GAP 11 (5-13); ASPARTATE AMINO TRANSFERASE 33 IU/L (15-46); BILIRUBIN,INDIRECT 0.2 mg/dl (0-1.1); BILIRUBIN,TOTAL 0.2 mg/dl (0.2-1.3); BLOOD UREA NITROGEN 41 mg/dl (7-20); CALCIUM 9.8 mg/dl (8.4-10.2); CARBON DIOXIDE 27 mmol/L (21-31); CHLORIDE 101 mmol/L (97-110); CREATININE 1.74 mg/dl (0.44-1.00); GLUCOSE 181 mg/dl (70-220); MAGNESIUM 1.8 mg/dl (1.7-2.5); POTASSIUM 4.2 mmol/L (3.5-5.1); SODIUM 139 mmol/L (135-144); TOTAL PROTEIN 7.4 g/dl (6.1-8.1)
[2018-08-10] MEDS: Insulin NOVOLOG SS MILD Algorithm (SS with meals and bedtime) SC ×4 (08:21→21:00)
[2018-08-10] MEDS: LISINOPRIL 5 MG TAB PO (08:23)
[2018-08-10] MEDS: METOPROLOL (XL) 25 MG TAB PO (08:23)
[2018-08-10] MEDS: APIXABAN 5 MG TABLET PO ×2 (08:23→20:24)
[2018-08-10] MEDS: ASPIRIN 81 MG TAB PO (08:23)
[2018-08-10] MEDS: SPIRONOLACTONE 25 MG TAB PO (08:23)
[2018-08-10] MEDS: AMIODARONE 200 ML IV ×2 (08:24→11:33)
[2018-08-10] MEDS: AMIODARONE 200 MG TAB PO ×2 (09:39→21:00)
[2018-08-10] MEDS: BUDESONIDE (NEB) 0.5MG/2ML AMP HHN ×2 (10:39→21:23)
[2018-08-10] MEDS: ATORVASTATIN 80 MG TAB PO (20:24)
[2018-08-10] MEDS: ZOLPIDEM 5 MG TAB PO (22:39)
[2018-08-10] MEDS: DIGOXIN 500 MCG INJ IV (22:39)
[2018-08-11] MEDS ORDERED: DIGOXIN 500 MCG INJ IV (01:00)
[2018-08-11] MEDS: ALBUTEROL/IPRATROPIUM (NEB) 3 ML AMP HHN ×4 (01:59→19:33)
[2018-08-11] MEDS: ACCUCHECK AT 2AM (Patients on SS coverage) XX (02:00)
[2018-08-11] MEDS: DIGOXIN 500 MCG INJ IV (02:06)
[2018-08-11] MEDS: HYDROCODONE/APAP (5/325) TAB PO (03:02)
[2018-08-11 06:21] LABS: ALANINE AMINOTRANSFERASE 98 IU/L (13-69); ALBUMIN 3.3 g/dl (3.3-4.9); ALBUMIN/GLOBULIN RATIO 0.78; ALKALINE PHOSPHATASE 98 IU/L (42-121); ANION GAP 12 (5-13); ASPARTATE AMINO TRANSFERASE 28 IU/L (15-46); BILIRUBIN,INDIRECT 0.2 mg/dl (0-1.1); BILIRUBIN,TOTAL 0.2 mg/dl (0.2-1.3); BLOOD UREA NITROGEN 38 mg/dl (7-20); CALCIUM 9.6 mg/dl (8.4-10.2); CARBON DIOXIDE 28 mmol/L (21-31); CHLORIDE 99 mmol/L (97-110); GLUCOSE 162 mg/dl (70-220); MAGNESIUM 1.8 mg/dl (1.7-2.5); POTASSIUM 4.3 mmol/L (3.5-5.1); SODIUM 139 mmol/L (135-144); TOTAL PROTEIN 7.5 g/dl (6.1-8.1)
[2018-08-11 06:24] LABS: DIGOXIN 3.5 ng/ml (1.0-2.0)
[2018-08-11 06:29] LABS: B-TYPE NATRIURETIC PEPTIDE 10900 PG/ML (0-450)
[2018-08-11] MEDS: Insulin NOVOLOG SS MILD Algorithm (SS with meals and bedtime) SC ×3 (07:00→17:30)
[2018-08-11] MEDS: BUDESONIDE (NEB) 0.5MG/2ML AMP HHN ×2 (08:42→19:34)
[2018-08-11] MEDS: APIXABAN 5 MG TABLET PO (10:48)
[2018-08-11] MEDS: SPIRONOLACTONE 25 MG TAB PO (10:48)
[2018-08-11] MEDS: ASPIRIN 81 MG TAB PO (10:48)
[2018-08-11] MEDS: METOPROLOL (XL) 25 MG TAB PO (10:49)
[2018-08-11] MEDS: AMIODARONE 200 MG TAB PO (10:49)
[2018-08-11] MEDS: ALBUMIN HUMAN 25% 100 ML IV (12:27)
[2018-08-12] MEDS ORDERED: FUROSEMIDE 20 MG TAB PO (09:00)
== END 2018-08-11 20:26 | DRG 871 ==
LOC: ICU 07-31 04:36 → 6WM 08-04 17:14 → E/R 15:03 → TEL 17:13
PROC: 02HV33Z Insertion of Infusion Device into Superior Vena Cava, Percutaneous Approach (ICD-10-PCS; principal; 2018-08-01 09:50)
PROC: 4A023N7 Measurement of Cardiac Sampling and Pressure, Left Heart, Percutaneous Approach (ICD-10-PCS; 2018-08-01 09:50)
PROC: B211YZZ Fluoroscopy of Multiple Coronary Arteries using Other Contrast (ICD-10-PCS; 2018-08-01 09:50)
PROC: 5A09457 Assistance with Respiratory Ventilation, 24-96 Consecutive Hours, Continuous Positive Airway Pressure (ICD-10-PCS; 2018-08-01 09:50)
DX: A41.9 Sepsis, unspecified organism (principal); R65.21 Severe sepsis with septic shock; J18.9 Pneumonia, unspecified organism; J96.01 Acute respiratory failure with hypoxia; I21.4 Non-ST elevation (NSTEMI) myocardial infarction; I50.21 Acute systolic (congestive) heart failure; E87.2 Acidosis; N39.0 Urinary tract infection, site not specified; N17.9 Acute kidney failure, unspecified; D63.8 Anemia in other chronic diseases classified elsewhere; I11.0 Hypertensive heart disease with heart failure; E11.65 Type 2 diabetes mellitus with hyperglycemia; E78.5 Hyperlipidemia, unspecified; I48.0 Paroxysmal atrial fibrillation; D64.9 Anemia, unspecified; E11.9 Type 2 diabetes mellitus without complications; E66.9 Obesity, unspecified; I25.5 Ischemic cardiomyopathy; I25.10 Atherosclerotic heart disease of native coronary artery without angina pectoris; I35.0 Nonrheumatic aortic (valve) stenosis; R74.0 Nonspecific elevation of levels of transaminase and lactic acid dehydrogenase [LDH]; Z66 Do not resuscitate; Z68.29 Body mass index [BMI] 29.0-29.9, adult
CPT/HCPCS: 36415; 36600; 71045; 80048; 80053; 80061; 80162; 81001; 81003; 82550; 82553; 82570; 82803; 82962; 83036; 83605; 83735; 83880; 84100; 84145; 84300; 84436; 84479; 84484; 84560; 85025; 85610; 85730; 87040; 87081; 87086; 87400; 89190; 92526; 92610; 93005; 93306; 93458; 94640; 94660; 94664; 96374; 96375; 97110; 97116; 97162; 97530; 99291-25

== ENCOUNTER 2018-08-29 18:35 | Inpatient (IN) | payer MEDICARE, OTHER ==
[2018-08-29] MEDS ORDERED: ZOLPIDEM 5 MG TAB PO (20:00)
[2018-08-29] MEDS ORDERED: SILVER SULFADIAZINE 1% 25 GM CR TOP (20:00)
[2018-08-29] MEDS ORDERED: DOCUSATE SODIUM 100 MG CAP PO (20:00)
[2018-08-29] MEDS ORDERED: ALBUTEROL/IPRATROPIUM (NEB) 3 ML AMP HHN (20:00)
[2018-08-29] MEDS ORDERED: PENDING SANTYL ORDER FOR WOUND CARE XX (20:30)
[2018-08-29] MEDS: SILVER SULFADIAZINE 1% 25 GM CR TOP (21:00)
[2018-08-29] MEDS: ATORVASTATIN 80 MG TAB PO (21:54)
[2018-08-29] MEDS: APIXABAN 5 MG TABLET PO (21:55)
[2018-08-29] MEDS: AMIODARONE 200 MG TAB PO (21:55)
[2018-08-30 00:45] LABS: ADD UMIC YES; UR ASCORBIC ACID NEGATIVE (NEGATIVE); UR BILIRUBIN (Dip) NEGATIVE (NEGATIVE); UR BLOOD (Dip) 2+ mg/dL (NEGATIVE); UR CLARITY CLEAR (CLEAR); UR COLOR YELLOW (YELLOW); UR GLUCOSE (Dip) NEGATIVE (NEGATIVE); UR KETONES (Dip) NEGATIVE (NEGATIVE); UR LEUKOCYTE ESTERASE (Dip) TRACE Leu/ul (NEGATIVE); UR MUCUS FEW /HPF (NONE SEEN); UR NITRITE (Dip) NEGATIVE (NEGATIVE); UR RBC 1 /HPF (0-5); UR SPECIFIC GRAVITY (Dip) 1.015 (1.003-1.030); UR SQUAMOUS EPITHELIAL CELL FEW /HPF (FEW); UR TOTAL PROTEIN (Dip) NEGATIVE (NEGATIVE); UR UROBILINOGEN (Dip) NEGATIVE (NEGATIVE); UR WBC 3 /HPF (0-5)
[2018-08-30 06:40] LABS: ADD MAN DIFF? NO
[2018-08-30 06:55] LABS: BASOPHILS % 0.3 % (0.0-2.0); EOSINOPHILS # 0.2 10^3/ul (0.0-0.5); EOSINOPHILS % 2.4 % (0.0-7.0); HEMATOCRIT 33.2 % (37.0-47.0); HEMOGLOBIN 10.4 g/dl (12.0-16.0); LYMPHOCYTES % 30.1 % (15.0-51.0); MEAN CORPUSCULAR HGB CONC 31.3 g/dl (32.0-37.0); MEAN CORPUSCULAR VOLUME 98.8 fl (82.0-101.0); MEAN PLATELET VOLUME 8.9 fl (7.4-10.4); MONOCYTE # 0.6 10^3/ul (0.3-0.9); MONOCYTES % 9.4 % (0.0-11.0); NEUTROPHIL # 3.8 10^3/ul (1.6-7.5); NEUTROPHILS % 57.4 % (39.0-77.0); PLATELET COUNT 160 10^3/UL (140-415); RED BLOOD COUNT 3.36 10^6/ul (4.20-5.40); RED CELL DISTRIBUTION WIDTH 13.1 % (11.5-14.5)
[2018-08-30 06:55] LABS: WHITE BLOOD COUNT 6.7 10^3/ul (4.8-10.8)
[2018-08-30 07:21] LABS: ALANINE AMINOTRANSFERASE 19 IU/L (13-69); ALBUMIN 3.2 g/dl (3.3-4.9); ALBUMIN/GLOBULIN RATIO 0.86; ALKALINE PHOSPHATASE 104 IU/L (42-121); ANION GAP 8 (5-13); ASPARTATE AMINO TRANSFERASE 16 IU/L (15-46); BILIRUBIN,INDIRECT 0.3 mg/dl (0-1.1); BILIRUBIN,TOTAL 0.3 mg/dl (0.2-1.3); BLOOD UREA NITROGEN 28 mg/dl (7-20); CALCIUM 9.3 mg/dl (8.4-10.2); CARBON DIOXIDE 22 mmol/L (21-31); CHLORIDE 106 mmol/L (97-110); CREATININE 1.71 mg/dl (0.44-1.00); GLUCOSE 137 mg/dl (70-220); POTASSIUM 5.2 mmol/L (3.5-5.1); SODIUM 136 mmol/L (135-144); TOTAL PROTEIN 6.9 g/dl (6.1-8.1)
[2018-08-30] MEDS ORDERED: SPIRONOLACTONE 25 MG TAB PO (09:00)
[2018-08-30] MEDS: ONDANSETRON 4 MG INJ IV (09:27)
[2018-08-30] MEDS: APIXABAN 5 MG TABLET PO ×2 (09:37→20:45)
[2018-08-30] MEDS: SILVER SULFADIAZINE 1% 25 GM CR TOP ×2 (09:37→20:46)
[2018-08-30] MEDS: ASPIRIN 81 MG TAB PO (09:38)
[2018-08-30] MEDS: AMIODARONE 200 MG TAB PO ×2 (09:38→20:46)
[2018-08-30] MEDS: ACCU-CHEK XX ×3 (12:15→20:56)
[2018-08-30] MEDS: NA POLYST SULFON 15 GM/60 ML BTL PO (17:40)
[2018-08-30] MEDS: ATORVASTATIN 80 MG TAB PO (20:45)
[2018-08-31 07:55] LABS: ALANINE AMINOTRANSFERASE 17 IU/L (13-69); ALBUMIN 3.1 g/dl (3.3-4.9); ALBUMIN/GLOBULIN RATIO 0.83; ALKALINE PHOSPHATASE 95 IU/L (42-121); ANION GAP 11 (5-13); ASPARTATE AMINO TRANSFERASE 17 IU/L (15-46); BILIRUBIN,INDIRECT 0.3 mg/dl (0-1.1); BILIRUBIN,TOTAL 0.3 mg/dl (0.2-1.3); BLOOD UREA NITROGEN 29 mg/dl (7-20); CALCIUM 9.1 mg/dl (8.4-10.2); CARBON DIOXIDE 25 mmol/L (21-31); CHLORIDE 103 mmol/L (97-110); CREATININE 1.82 mg/dl (0.44-1.00); GLUCOSE 119 mg/dl (70-220); POTASSIUM 5.1 mmol/L (3.5-5.1); SODIUM 139 mmol/L (135-144); TOTAL PROTEIN 6.8 g/dl (6.1-8.1)
[2018-08-31 07:58] LABS: B-TYPE NATRIURETIC PEPTIDE 5310 PG/ML (0-450)
[2018-08-31] MEDS: ACCU-CHEK XX ×4 (08:00→20:35)
[2018-08-31] MEDS: ASPIRIN 81 MG TAB PO (09:36)
[2018-08-31] MEDS: AMIODARONE 200 MG TAB PO ×2 (09:37→20:38)
[2018-08-31] MEDS: APIXABAN 5 MG TABLET PO ×2 (09:38→20:39)
[2018-08-31] MEDS: SILVER SULFADIAZINE 1% 25 GM CR TOP ×2 (09:39→20:45)
[2018-08-31] MEDS: ISOSORBIDE MONONITRATE(SR)30 MG TAB PO (10:00)
[2018-08-31] MEDS: ARTIFICIAL TEARS 15 ML OPH BOTH EYES (20:37)
[2018-08-31] MEDS: ATORVASTATIN 80 MG TAB PO (20:39)
[2018-08-31] MEDS: INSULIN ASPART [NOVOLOG] 3 ML PEN SC (21:15)
[2018-08-31] MEDS ORDERED: GLUCOSE GEL 15 GRAM TUBE PO ×2 (21:30)
[2018-08-31] MEDS ORDERED: DEXTROSE 50% 50 ML SYRINGE IV ×2 (21:30)
[2018-08-31] MEDS ORDERED: GLUCAGON 1 MG INJ IM (21:30)
[2018-08-31] MEDS ORDERED: GLUCOSE GEL 15 GRAM TUBE BUCCAL (21:30)
[2018-09-01] MEDS ORDERED: INSULIN ASPART [NOVOLOG] 3 ML PEN SC (07:35)
[2018-09-01] MEDS: INSULIN ASPART [NOVOLOG] 3 ML PEN SC ×4 (07:35→20:34)
[2018-09-01] MEDS: ACCU-CHEK XX ×4 (08:03→20:34)
[2018-09-01] MEDS: SILVER SULFADIAZINE 1% 25 GM CR TOP ×2 (09:00→20:25)
[2018-09-01] MEDS: APIXABAN 5 MG TABLET PO ×2 (09:16→20:25)
[2018-09-01] MEDS: AMIODARONE 200 MG TAB PO ×2 (09:16→20:33)
[2018-09-01] MEDS: ISOSORBIDE MONONITRATE(SR)30 MG TAB PO (09:16)
[2018-09-01] MEDS: ASPIRIN 81 MG TAB PO (09:16)
[2018-09-01 09:17] LABS: ALANINE AMINOTRANSFERASE 16 IU/L (13-69); ALBUMIN 3.2 g/dl (3.3-4.9); ALBUMIN/GLOBULIN RATIO 0.84; ALKALINE PHOSPHATASE 98 IU/L (42-121); ANION GAP 10 (5-13); ASPARTATE AMINO TRANSFERASE 20 IU/L (15-46); BILIRUBIN,INDIRECT 0.3 mg/dl (0-1.1); BILIRUBIN,TOTAL 0.3 mg/dl (0.2-1.3); BLOOD UREA NITROGEN 29 mg/dl (7-20); CALCIUM 9.1 mg/dl (8.4-10.2); CARBON DIOXIDE 23 mmol/L (21-31); CHLORIDE 105 mmol/L (97-110); CREATININE 1.82 mg/dl (0.44-1.00); GLUCOSE 128 mg/dl (70-220); MAGNESIUM 1.9 mg/dl (1.7-2.5); POTASSIUM 4.8 mmol/L (3.5-5.1); SODIUM 138 mmol/L (135-144)
[2018-09-01 09:21] LABS: B-TYPE NATRIURETIC PEPTIDE 6510 PG/ML (0-450)
[2018-09-01] MEDS: ONDANSETRON (ODT) 4 MG TAB ODT (10:38)
[2018-09-01] MEDS: ARTIFICIAL TEARS 15 ML OPH BOTH EYES ×2 (10:38→20:29)
[2018-09-01] MEDS: ATORVASTATIN 80 MG TAB PO (20:25)
[2018-09-02] MEDS: NITROGLYCERIN (SL) 0.4 MG TAB SL (02:46)
[2018-09-02] MEDS: AMLODIPINE 2.5 MG TAB PO ×2 (03:24→03:28)
[2018-09-02 04:06] LABS: TROPONIN-I 0.021 ng/ml (0.000-0.120)
[2018-09-02] MEDS: ASPIRIN 81 MG TAB PO ×2 (04:18→09:11)
[2018-09-02] MEDS ORDERED: traMADol 50 MG TAB PO (04:30)
[2018-09-02] MEDS: INSULIN ASPART [NOVOLOG] 3 ML PEN SC ×4 (07:35→21:00)
[2018-09-02] MEDS: ACCU-CHEK XX ×4 (07:54→21:22)
[2018-09-02] MEDS: ISOSORBIDE MONONITRATE(SR)30 MG TAB PO (09:00)
[2018-09-02] MEDS: ARTIFICIAL TEARS 15 ML OPH BOTH EYES ×2 (09:10→20:33)
[2018-09-02] MEDS: SILVER SULFADIAZINE 1% 25 GM CR TOP ×2 (09:10→20:30)
[2018-09-02] MEDS: AMIODARONE 200 MG TAB PO ×2 (09:11→20:25)
[2018-09-02] MEDS: APIXABAN 5 MG TABLET PO ×2 (09:11→20:24)
[2018-09-02] MEDS: BISACODYL (EC) 5 MG TAB PO (09:11)
[2018-09-02 11:58] LABS: IRON 62 ug/dl (35-150)
[2018-09-02 12:07] LABS: % IRON SATURATION 26 % SAT (22-52); TOTAL IRON BINDING CAPACITY 236 ug/dl (241-421)
[2018-09-02 12:33] LABS: FERRITIN 52.4 ng/ml (11.1-264.0)
[2018-09-02] MEDS: ATORVASTATIN 80 MG TAB PO (20:24)
[2018-09-03] MEDS: INSULIN ASPART [NOVOLOG] 3 ML PEN SC ×4 (07:35→21:00)
[2018-09-03 07:50] LABS: ADD MAN DIFF? NO
[2018-09-03] MEDS: ACCU-CHEK XX ×4 (08:01→21:00)
[2018-09-03 08:03] LABS: WHITE BLOOD COUNT 4.7 10^3/ul (4.8-10.8)
[2018-09-03 08:03] LABS: BASOPHILS % 0.4 % (0.0-2.0); EOSINOPHILS # 0.1 10^3/ul (0.0-0.5); EOSINOPHILS % 2.7 % (0.0-7.0); HEMATOCRIT 29.8 % (37.0-47.0); HEMOGLOBIN 9.5 g/dl (12.0-16.0); LYMPHOCYTES # 1.8 10^3/ul (0.8-2.9); LYMPHOCYTES % 38.9 % (15.0-51.0); MEAN CORPUSCULAR HEMOGLOBIN 31.7 pg (29.0-33.0); MEAN CORPUSCULAR HGB CONC 31.9 g/dl (32.0-37.0); MEAN CORPUSCULAR VOLUME 99.3 fl (82.0-101.0); MEAN PLATELET VOLUME 9.6 fl (7.4-10.4); MONOCYTE # 0.4 10^3/ul (0.3-0.9); MONOCYTES % 9.3 % (0.0-11.0); NEUTROPHIL # 2.3 10^3/ul (1.6-7.5); NEUTROPHILS % 47.9 % (39.0-77.0); PLATELET COUNT 139 10^3/UL (140-415); RED CELL DISTRIBUTION WIDTH 13.1 % (11.5-14.5)
[2018-09-03 08:13] LABS: ALANINE AMINOTRANSFERASE 16 IU/L (13-69); ALBUMIN 3.1 g/dl (3.3-4.9); ALBUMIN/GLOBULIN RATIO 0.86; ALKALINE PHOSPHATASE 68 IU/L (42-121); ANION GAP 9 (5-13); ASPARTATE AMINO TRANSFERASE 29 IU/L (15-46); BILIRUBIN,INDIRECT 0.3 mg/dl (0-1.1); BILIRUBIN,TOTAL 0.3 mg/dl (0.2-1.3); BLOOD UREA NITROGEN 32 mg/dl (7-20); CARBON DIOXIDE 27 mmol/L (21-31); CHLORIDE 103 mmol/L (97-110); CREATININE 1.51 mg/dl (0.44-1.00); GLUCOSE 129 mg/dl (70-220); POTASSIUM 5.4 mmol/L (3.5-5.1); SODIUM 139 mmol/L (135-144); TOTAL PROTEIN 6.7 g/dl (6.1-8.1)
[2018-09-03 08:21] LABS: POSITIVE DIFF @See below
[2018-09-03] MEDS: ISOSORBIDE MONONITRATE(SR)30 MG TAB PO (09:00)
[2018-09-03] MEDS: AMIODARONE 200 MG TAB PO ×2 (09:44→20:58)
[2018-09-03] MEDS: ASPIRIN 81 MG TAB PO (09:45)
[2018-09-03] MEDS: APIXABAN 5 MG TABLET PO ×2 (09:45→20:59)
[2018-09-03] MEDS: SILVER SULFADIAZINE 1% 25 GM CR TOP ×3 (09:47→21:00)
[2018-09-03] MEDS: ARTIFICIAL TEARS 15 ML OPH BOTH EYES (09:59)
[2018-09-03] MEDS: BISACODYL (EC) 5 MG TAB PO (10:16)
[2018-09-03] MEDS: NA POLYST SULFON 15 GM/60 ML BTL PO (17:53)
[2018-09-03] MEDS: ATORVASTATIN 80 MG TAB PO (20:56)
[2018-09-03] MEDS: ONDANSETRON (ODT) 4 MG TAB ODT (21:22)
[2018-09-04] MEDS: ACCU-CHEK XX ×4 (07:05→21:18)
[2018-09-04 07:14] LABS: ADD MAN DIFF? NO
[2018-09-04 07:21] LABS: BASOPHILS % 0.2 % (0.0-2.0); EOSINOPHILS # 0.2 10^3/ul (0.0-0.5); EOSINOPHILS % 1.9 % (0.0-7.0); HEMATOCRIT 31.1 % (37.0-47.0); HEMOGLOBIN 9.7 g/dl (12.0-16.0); LYMPHOCYTES # 2.2 10^3/ul (0.8-2.9); LYMPHOCYTES % 27.6 % (15.0-51.0); MEAN CORPUSCULAR HEMOGLOBIN 30.9 pg (29.0-33.0); MEAN CORPUSCULAR HGB CONC 31.2 g/dl (32.0-37.0); MEAN PLATELET VOLUME 8.7 fl (7.4-10.4); MONOCYTE # 0.6 10^3/ul (0.3-0.9); MONOCYTES % 7.6 % (0.0-11.0); NEUTROPHILS % 62.3 % (39.0-77.0); PLATELET COUNT 173 10^3/UL (140-415); RED BLOOD COUNT 3.14 10^6/ul (4.20-5.40); RED CELL DISTRIBUTION WIDTH 13.1 % (11.5-14.5)
[2018-09-04] MEDS: INSULIN ASPART [NOVOLOG] 3 ML PEN SC ×4 (07:35→21:00)
[2018-09-04 07:42] LABS: ANION GAP 8 (5-13); BLOOD UREA NITROGEN 29 mg/dl (7-20); CALCIUM 8.8 mg/dl (8.4-10.2); CARBON DIOXIDE 24 mmol/L (21-31); CHLORIDE 107 mmol/L (97-110); CREATININE 1.25 mg/dl (0.44-1.00); GLUCOSE 163 mg/dl (70-220); POTASSIUM 4.8 mmol/L (3.5-5.1); SODIUM 139 mmol/L (135-144)
[2018-09-04] MEDS: ONDANSETRON (ODT) 4 MG TAB ODT (08:15)
[2018-09-04] MEDS: APIXABAN 5 MG TABLET PO ×3 (09:00→20:55)
[2018-09-04] MEDS: ISOSORBIDE MONONITRATE(SR)30 MG TAB PO (09:00)
[2018-09-04] MEDS: SILVER SULFADIAZINE 1% 25 GM CR TOP ×2 (09:00→20:56)
[2018-09-04] MEDS: ASPIRIN 81 MG TAB PO ×2 (09:00→16:40)
[2018-09-04] MEDS: ACETAMINOPHEN 325 MG TAB PO ×2 (11:31→11:38)
[2018-09-04] MEDS: AMIODARONE 200 MG TAB PO ×2 (11:35→21:49)
[2018-09-04] MEDS: NITROGLYCERIN (SL) 0.4 MG TAB SL ×2 (13:06→19:30)
[2018-09-04 14:30] LABS: TROPONIN-I < 0.012 ng/ml (0.000-0.120)
[2018-09-04] MEDS: ARTIFICIAL TEARS 15 ML OPH BOTH EYES ×3 (16:45→21:56)
[2018-09-04] MEDS: ATORVASTATIN 80 MG TAB PO (20:55)
[2018-09-04 21:02] LABS: CK-MB 0.48 ng/ml (0.0-2.4)
[2018-09-04 21:02] LABS: TROPONIN-I < 0.012 ng/ml (0.000-0.120)
[2018-09-05] MEDS: INSULIN ASPART [NOVOLOG] 3 ML PEN SC ×2 (07:35→12:51)
[2018-09-05 07:42] LABS: ADD MAN DIFF? NO
[2018-09-05 07:44] LABS: BASOPHILS % 0.4 % (0.0-2.0); EOSINOPHILS # 0.1 10^3/ul (0.0-0.5); EOSINOPHILS % 2.3 % (0.0-7.0); HEMATOCRIT 28.1 % (37.0-47.0); HEMOGLOBIN 8.9 g/dl (12.0-16.0); LYMPHOCYTES % 37.4 % (15.0-51.0); MEAN CORPUSCULAR HEMOGLOBIN 31.2 pg (29.0-33.0); MEAN CORPUSCULAR HGB CONC 31.7 g/dl (32.0-37.0); MEAN CORPUSCULAR VOLUME 98.6 fl (82.0-101.0); MEAN PLATELET VOLUME 9.1 fl (7.4-10.4); MONOCYTE # 0.4 10^3/ul (0.3-0.9); MONOCYTES % 8.2 % (0.0-11.0); NEUTROPHIL # 2.7 10^3/ul (1.6-7.5); NEUTROPHILS % 51.5 % (39.0-77.0); PLATELET COUNT 166 10^3/UL (140-415); RED BLOOD COUNT 2.85 10^6/ul (4.20-5.40); RED CELL DISTRIBUTION WIDTH 13.1 % (11.5-14.5)
[2018-09-05 07:44] LABS: WHITE BLOOD COUNT 5.2 10^3/ul (4.8-10.8)
[2018-09-05] MEDS: ACCU-CHEK XX ×2 (08:04→11:30)
[2018-09-05 08:15] LABS: CREATINE KINASE 25 IU/L (23-200)
[2018-09-05 08:18] LABS: ALANINE AMINOTRANSFERASE 19 IU/L (13-69); ALBUMIN 2.9 g/dl (3.3-4.9); ALBUMIN/GLOBULIN RATIO 0.87; ALKALINE PHOSPHATASE 72 IU/L (42-121); ANION GAP 10 (5-13); ASPARTATE AMINO TRANSFERASE 18 IU/L (15-46); BILIRUBIN,INDIRECT 0.6 mg/dl (0-1.1); BILIRUBIN,TOTAL 0.6 mg/dl (0.2-1.3); BLOOD UREA NITROGEN 31 mg/dl (7-20); CALCIUM 8.9 mg/dl (8.4-10.2); CARBON DIOXIDE 26 mmol/L (21-31); CHLORIDE 101 mmol/L (97-110); CREATININE 1.53 mg/dl (0.44-1.00); GLUCOSE 126 mg/dl (70-220); MAGNESIUM 1.4 mg/dl (1.7-2.5); SODIUM 137 mmol/L (135-144); TOTAL PROTEIN 6.2 g/dl (6.1-8.1)
[2018-09-05 08:26] LABS: B-TYPE NATRIURETIC PEPTIDE 10600 PG/ML (0-450)
[2018-09-05 08:28] LABS: CK INDEX 2.3; CK-MB 0.58 ng/ml (0.0-2.4); TROPONIN-I 0.023 ng/ml (0.000-0.120)
[2018-09-05] MEDS: ISOSORBIDE MONONITRATE(SR)30 MG TAB PO (09:00)
[2018-09-05] MEDS: SILVER SULFADIAZINE 1% 25 GM CR TOP (09:00)
[2018-09-05] MEDS: AMIODARONE 200 MG TAB PO (09:35)
[2018-09-05] MEDS: APIXABAN 5 MG TABLET PO (09:35)
[2018-09-05] MEDS: ASPIRIN 81 MG TAB PO (09:35)
== END 2018-09-05 15:15 | disposition hospice, home (50) | DRG 91 ==
LOC: VRC 18:35
DX: G72.81 Critical illness myopathy (principal); I21.3 ST elevation (STEMI) myocardial infarction of unspecified site; N17.9 Acute kidney failure, unspecified; N39.0 Urinary tract infection, site not specified; I13.0 Hypertensive heart and chronic kidney disease with heart failure and stage 1 through stage 4 chronic kidney disease, or unspecified chronic kidney disease; I42.9 Cardiomyopathy, unspecified; I50.42 Chronic combined systolic (congestive) and diastolic (congestive) heart failure; N18.3 Chronic kidney disease, stage 3 (moderate); I25.119 Atherosclerotic heart disease of native coronary artery with unspecified angina pectoris; Z95.1 Presence of aortocoronary bypass graft; I48.91 Unspecified atrial fibrillation; R53.81 Other malaise; E78.5 Hyperlipidemia, unspecified; E03.9 Hypothyroidism, unspecified; R13.10 Dysphagia, unspecified; Z74.09 Other reduced mobility; E11.22 Type 2 diabetes mellitus with diabetic chronic kidney disease; E11.51 Type 2 diabetes mellitus with diabetic peripheral angiopathy without gangrene; Z87.09 Personal history of other diseases of the respiratory system; D63.8 Anemia in other chronic diseases classified elsewhere
CPT/HCPCS: 80048; 80053; 81001; 82550; 82553; 82728; 82962; 83540; 83735; 83880; 84484; 85025; 87081; 87086; 92610; 93005; 97110; 97116; 97163; 97530; 97535; 97542

== ENCOUNTER 2018-10-02 13:35 | Inpatient (IN) | payer MEDICARE, OTHER ==
[2018-10-02 14:08] LABS: ADD MAN DIFF? NO
[2018-10-02 14:10] LABS: WHITE BLOOD COUNT 7.7 10^3/ul (4.8-10.8)
[2018-10-02 14:11] LABS: BASOPHILS % 0.3 % (0.0-2.0); EOSINOPHILS # 0.1 10^3/ul (0.0-0.5); EOSINOPHILS % 0.8 % (0.0-7.0); HEMATOCRIT 28.2 % (37.0-47.0); HEMOGLOBIN 8.5 g/dl (12.0-16.0); LYMPHOCYTES # 1.8 10^3/ul (0.8-2.9); LYMPHOCYTES % 23.9 % (15.0-51.0); MEAN CORPUSCULAR HEMOGLOBIN 31.4 pg (29.0-33.0); MEAN CORPUSCULAR HGB CONC 30.1 g/dl (32.0-37.0); MEAN CORPUSCULAR VOLUME 104.1 fl (82.0-101.0); MEAN PLATELET VOLUME 9.5 fl (7.4-10.4); MONOCYTE # 0.5 10^3/ul (0.3-0.9); MONOCYTES % 6.1 % (0.0-11.0); NEUTROPHIL # 5.3 10^3/ul (1.6-7.5); NEUTROPHILS % 68.5 % (39.0-77.0); NUCLEATED RED BLOOD CELLS% 0.3 /100WBC (0.0-0.0); PLATELET COUNT 415 10^3/UL (140-415); RED BLOOD COUNT 2.71 10^6/ul (4.20-5.40); RED CELL DISTRIBUTION WIDTH 17.4 % (11.5-14.5)
[2018-10-02 14:30] LABS: INR 1.61; PROTIME 19.2 Sec (11.9-14.9); PT RATIO 1.5
[2018-10-02 14:31] LABS: ANION GAP 15 (5-13); BLOOD UREA NITROGEN 59 mg/dl (7-20); CALCIUM 9.1 mg/dl (8.4-10.2); CARBON DIOXIDE 23 mmol/L (21-31); CHLORIDE 98 mmol/L (97-110); CREATININE 2.84 mg/dl (0.44-1.00); GLUCOSE 245 mg/dl (70-220); PARTIAL THROMBOPLASTIN TIME 30.8 Sec (23.0-35.0); POTASSIUM 5.3 mmol/L (3.5-5.1); SODIUM 136 mmol/L (135-144)
[2018-10-02 14:44] LABS: TROPONIN-I 0.091 ng/ml (0.000-0.120)
[2018-10-02 15:09] LABS: B-TYPE NATRIURETIC PEPTIDE 41400 PG/ML (0-450)
[2018-10-02] MEDS: ASPIRIN 81 MG TAB PO (15:32)
[2018-10-02] MEDS: FUROSEMIDE 20 MG INJ IV (15:32)
[2018-10-02] MEDS ORDERED: HYDROCODONE/APAP (5/325) TAB PO (17:00)
[2018-10-02] MEDS ORDERED: NACL 0.9% 3 ML SYG IV (17:00)
[2018-10-02] MEDS ORDERED: ACETAMINOPHEN 325 MG TAB PO (17:00)
[2018-10-02] MEDS ORDERED: morphine 2 MG INJ IV (17:00)
[2018-10-02] MEDS: ATORVASTATIN 20 MG TAB PO ×2 (20:12→20:17)
[2018-10-02 21:41] LABS: TROPONIN-I 0.116 ng/ml (0.000-0.120)
[2018-10-02 21:43] LABS: LIPASE 71 U/L (23-300)
[2018-10-02] MEDS: APIXABAN 5 MG TABLET PO (22:51)
[2018-10-02] MEDS: AMIODARONE 200 MG TAB PO (22:51)
[2018-10-03] MEDS ORDERED: DOCUSATE SODIUM 100 MG CAP PO
[2018-10-03] MEDS ORDERED: PENDING SANTYL ORDER FOR WOUND CARE XX (00:30)
[2018-10-03] MEDS: PANTOPRAZOLE (EC) 40 MG TAB PO (05:44)
[2018-10-03 05:59] LABS: ADD MAN DIFF? NO
[2018-10-03 06:14] LABS: BASOPHILS % 0.4 % (0.0-2.0); EOSINOPHILS # 0.1 10^3/ul (0.0-0.5); HEMATOCRIT 27.3 % (37.0-47.0); HEMOGLOBIN 8.3 g/dl (12.0-16.0); LYMPHOCYTES # 1.8 10^3/ul (0.8-2.9); LYMPHOCYTES % 24.8 % (15.0-51.0); MEAN CORPUSCULAR HEMOGLOBIN 31.4 pg (29.0-33.0); MEAN CORPUSCULAR HGB CONC 30.4 g/dl (32.0-37.0); MEAN CORPUSCULAR VOLUME 103.4 fl (82.0-101.0); MEAN PLATELET VOLUME 9.8 fl (7.4-10.4); MONOCYTE # 0.4 10^3/ul (0.3-0.9); NEUTROPHIL # 4.9 10^3/ul (1.6-7.5); NEUTROPHILS % 67.1 % (39.0-77.0); PLATELET COUNT 354 10^3/UL (140-415); RED BLOOD COUNT 2.64 10^6/ul (4.20-5.40); RED CELL DISTRIBUTION WIDTH 17.2 % (11.5-14.5)
[2018-10-03 06:14] LABS: WHITE BLOOD COUNT 7.3 10^3/ul (4.8-10.8)
[2018-10-03 06:25] LABS: ALANINE AMINOTRANSFERASE 25 IU/L (13-69); ALBUMIN 3.1 g/dl (3.3-4.9); ALBUMIN/GLOBULIN RATIO 0.81; ALKALINE PHOSPHATASE 90 IU/L (42-121); ANION GAP 10 (5-13); ASPARTATE AMINO TRANSFERASE 22 IU/L (15-46); BILIRUBIN,INDIRECT 0.4 mg/dl (0-1.1); BILIRUBIN,TOTAL 0.4 mg/dl (0.2-1.3); BLOOD UREA NITROGEN 65 mg/dl (7-20); CALCIUM 9.2 mg/dl (8.4-10.2); CARBON DIOXIDE 26 mmol/L (21-31); CHLORIDE 104 mmol/L (97-110); CHOLESTEROL 111 mg/dl (100-200); GLUCOSE 141 mg/dl (70-220); HDL CHOLESTEROL 22 mg/dl (33-92); LDL CHOLESTEROL,CALCULATED 56 mg/dl; MAGNESIUM 2.4 mg/dl (1.7-2.5); PHOSPHORUS 6.2 mg/dl (2.5-4.9); SODIUM 140 mmol/L (135-144); TOTAL PROTEIN 6.9 g/dl (6.1-8.1); TRIGLYCERIDES 163 mg/dl (0-149)
[2018-10-03 06:53] LABS: TROPONIN-I 0.121 ng/ml (0.000-0.120)
[2018-10-03] MEDS ORDERED: NON-FORMULARY/PATIENT OWN MED (Linaclotide (Linzess) 145 MCG) PO (09:00)
[2018-10-03] MEDS: ISOSORBIDE MONONITRATE(SR)30 MG TAB PO (09:00)
[2018-10-03 09:34] LABS: HEMOGLOBIN A1C 6.2 % (0-5.9)
[2018-10-03] MEDS: APIXABAN 5 MG TABLET PO ×2 (09:57→21:14)
[2018-10-03] MEDS: AMIODARONE 200 MG TAB PO ×2 (09:58→21:15)
[2018-10-03] MEDS: ONDANSETRON 4 MG INJ IV (17:56)
[2018-10-03] MEDS ORDERED: GLUCAGON 1 MG INJ IM (18:00)
[2018-10-03] MEDS ORDERED: GLUCOSE GEL 15 GRAM TUBE BUCCAL (18:00)
[2018-10-03] MEDS ORDERED: GLUCOSE GEL 15 GRAM TUBE PO ×2 (18:00)
[2018-10-03] MEDS ORDERED: DEXTROSE 50% 50 ML SYRINGE IV ×2 (18:00)
[2018-10-03] MEDS: FUROSEMIDE 20 MG INJ IV (18:30)
[2018-10-03] MEDS: INSULIN ASPART [NOVOLOG] 3 ML PEN SC ×2 (19:59→21:00)
[2018-10-03 20:01] LABS: MAGNESIUM 2.4 mg/dl (1.7-2.5)
[2018-10-03 20:14] LABS: TROPONIN-I 0.081 ng/ml (0.000-0.120)
[2018-10-03 20:30] LABS: B-TYPE NATRIURETIC PEPTIDE 40500 PG/ML (0-450)
[2018-10-03] MEDS: ATORVASTATIN 20 MG TAB PO (21:00)
[2018-10-04] MEDS: ACCU-CHEK XX (03:00)
[2018-10-04] MEDS: LEVOTHYROXINE 25 MCG TAB PO (06:40)
[2018-10-04] MEDS: PANTOPRAZOLE (EC) 40 MG TAB PO (06:40)
[2018-10-04] MEDS: INSULIN ASPART [NOVOLOG] 3 ML PEN SC ×5 (07:27→20:57)
[2018-10-04] MEDS: ISOSORBIDE MONONITRATE(SR)30 MG TAB PO (08:14)
[2018-10-04] MEDS: AMIODARONE 200 MG TAB PO ×2 (08:14→20:58)
[2018-10-04] MEDS: APIXABAN 5 MG TABLET PO ×2 (11:43→20:58)
[2018-10-04] MEDS ORDERED: BISACODYL (EC) 5 MG TAB PO (14:30)
[2018-10-04] MEDS ORDERED: BISACODYL 10 MG SUPP PR (14:30)
[2018-10-04] MEDS: ATORVASTATIN 20 MG TAB PO (20:58)
[2018-10-05] MEDS: ACCU-CHEK XX (02:00)
[2018-10-05] MEDS: PANTOPRAZOLE (EC) 40 MG TAB PO (06:27)
[2018-10-05] MEDS: LEVOTHYROXINE 25 MCG TAB PO (06:27)
[2018-10-05 06:41] LABS: ADD MAN DIFF? NO
[2018-10-05 06:52] LABS: BASOPHILS % 0.3 % (0.0-2.0); EOSINOPHILS # 0.1 10^3/ul (0.0-0.5); EOSINOPHILS % 1.6 % (0.0-7.0); HEMATOCRIT 28.2 % (37.0-47.0); HEMOGLOBIN 8.3 g/dl (12.0-16.0); LYMPHOCYTES # 1.4 10^3/ul (0.8-2.9); LYMPHOCYTES % 20.5 % (15.0-51.0); MEAN CORPUSCULAR HEMOGLOBIN 30.5 pg (29.0-33.0); MEAN CORPUSCULAR HGB CONC 29.4 g/dl (32.0-37.0); MEAN CORPUSCULAR VOLUME 103.7 fl (82.0-101.0); MEAN PLATELET VOLUME 9.6 fl (7.4-10.4); MONOCYTE # 0.4 10^3/ul (0.3-0.9); MONOCYTES % 6.4 % (0.0-11.0); NEUTROPHIL # 4.8 10^3/ul (1.6-7.5); NEUTROPHILS % 70.5 % (39.0-77.0); PLATELET COUNT 358 10^3/UL (140-415); RED BLOOD COUNT 2.72 10^6/ul (4.20-5.40); RED CELL DISTRIBUTION WIDTH 17.4 % (11.5-14.5)
[2018-10-05 06:52] LABS: WHITE BLOOD COUNT 6.8 10^3/ul (4.8-10.8)
[2018-10-05 07:15] LABS: ALANINE AMINOTRANSFERASE 30 IU/L (13-69); ALBUMIN 2.9 g/dl (3.3-4.9); ALBUMIN/GLOBULIN RATIO 0.78; ALKALINE PHOSPHATASE 100 IU/L (42-121); ANION GAP 9 (5-13); ASPARTATE AMINO TRANSFERASE 20 IU/L (15-46); BILIRUBIN,INDIRECT 0.3 mg/dl (0-1.1); BILIRUBIN,TOTAL 0.3 mg/dl (0.2-1.3); BLOOD UREA NITROGEN 62 mg/dl (7-20); CARBON DIOXIDE 27 mmol/L (21-31); CHLORIDE 105 mmol/L (97-110); CREATININE 2.47 mg/dl (0.44-1.00); GLUCOSE 130 mg/dl (70-220); SODIUM 141 mmol/L (135-144); TOTAL PROTEIN 6.6 g/dl (6.1-8.1)
[2018-10-05] MEDS: INSULIN ASPART [NOVOLOG] 3 ML PEN SC ×4 (08:00→21:00)
[2018-10-05] MEDS: APIXABAN 5 MG TABLET PO ×2 (08:49→21:00)
[2018-10-05] MEDS: AMIODARONE 200 MG TAB PO ×2 (08:50→21:01)
[2018-10-05] MEDS: ISOSORBIDE MONONITRATE(SR)30 MG TAB PO (08:51)
[2018-10-05] MEDS: FUROSEMIDE 40 MG INJ IV ×2 (16:06→22:39)
[2018-10-05] MEDS: ATORVASTATIN 20 MG TAB PO (21:01)
[2018-10-06] MEDS: ACCU-CHEK XX (02:00)
[2018-10-06] MEDS: PANTOPRAZOLE (EC) 40 MG TAB PO (06:07)
[2018-10-06] MEDS: LEVOTHYROXINE 25 MCG TAB PO (06:07)
[2018-10-06] MEDS: INSULIN ASPART [NOVOLOG] 3 ML PEN SC ×4 (08:00→21:00)
[2018-10-06] MEDS: APIXABAN 5 MG TABLET PO ×2 (08:17→21:45)
[2018-10-06] MEDS: SENNA/DOCUSATE NA (8.6MG/50MG) TAB PO (08:17)
[2018-10-06] MEDS: AMIODARONE 200 MG TAB PO ×2 (08:18→21:47)
[2018-10-06] MEDS: ISOSORBIDE MONONITRATE(SR)60 MG TAB PO (08:18)
[2018-10-06 10:13] LABS: ADD MAN DIFF? NO
[2018-10-06 10:20] LABS: WHITE BLOOD COUNT 5.9 10^3/ul (4.8-10.8)
[2018-10-06 10:20] LABS: BASOPHILS % 0.3 % (0.0-2.0); EOSINOPHILS # 0.1 10^3/ul (0.0-0.5); EOSINOPHILS % 1.7 % (0.0-7.0); HEMATOCRIT 28.2 % (37.0-47.0); HEMOGLOBIN 8.5 g/dl (12.0-16.0); LYMPHOCYTES % 17.5 % (15.0-51.0); MEAN CORPUSCULAR HEMOGLOBIN 31.1 pg (29.0-33.0); MEAN CORPUSCULAR HGB CONC 30.1 g/dl (32.0-37.0); MEAN CORPUSCULAR VOLUME 103.3 fl (82.0-101.0); MONOCYTE # 0.4 10^3/ul (0.3-0.9); MONOCYTES % 6.6 % (0.0-11.0); NEUTROPHIL # 4.3 10^3/ul (1.6-7.5); NEUTROPHILS % 73.2 % (39.0-77.0); PLATELET COUNT 327 10^3/UL (140-415); RED BLOOD COUNT 2.73 10^6/ul (4.20-5.40); RED CELL DISTRIBUTION WIDTH 17.5 % (11.5-14.5)
[2018-10-06 10:36] LABS: ANION GAP 8 (5-13); BLOOD UREA NITROGEN 48 mg/dl (7-20); CALCIUM 8.9 mg/dl (8.4-10.2); CARBON DIOXIDE 31 mmol/L (21-31); CHLORIDE 102 mmol/L (97-110); CREATININE 1.79 mg/dl (0.44-1.00); GLUCOSE 176 mg/dl (70-220); POTASSIUM 3.5 mmol/L (3.5-5.1); SODIUM 141 mmol/L (135-144)
[2018-10-06] MEDS: [UNRECOGNIZED DRUG - OTHER] XX ×2 (14:00→22:00)
[2018-10-06] MEDS: LINACLOTIDE 145 MCG XX ×2 (14:00→22:00)
[2018-10-06] MEDS: POLYETHYLENE GLYCOL 17 GM PACKET PO ×2 (17:32→21:00)
[2018-10-06] MEDS: LACTULOSE 30ML CUP PO (17:32)
[2018-10-06] MEDS: FUROSEMIDE 20 MG TAB PO (17:32)
[2018-10-06] MEDS: ATORVASTATIN 20 MG TAB PO (21:44)
[2018-10-07] MEDS: ACCU-CHEK XX (02:00)
[2018-10-07] MEDS: [UNRECOGNIZED DRUG - OTHER] XX ×3 (06:00→22:00)
[2018-10-07] MEDS: LINACLOTIDE 145 MCG XX ×3 (06:00→22:00)
[2018-10-07] MEDS: LEVOTHYROXINE 25 MCG TAB PO (06:38)
[2018-10-07] MEDS: PANTOPRAZOLE (EC) 40 MG TAB PO (06:38)
[2018-10-07 06:49] LABS: ANION GAP 6 (5-13); BLOOD UREA NITROGEN 39 mg/dl (7-20); CALCIUM 8.9 mg/dl (8.4-10.2); CARBON DIOXIDE 33 mmol/L (21-31); CHLORIDE 103 mmol/L (97-110); CREATININE 1.42 mg/dl (0.44-1.00); GLUCOSE 122 mg/dl (70-220); POTASSIUM 3.4 mmol/L (3.5-5.1); SODIUM 142 mmol/L (135-144)
[2018-10-07] MEDS: THIAMINE 100 MG TAB PO (08:20)
[2018-10-07] MEDS: APIXABAN 5 MG TABLET PO ×2 (08:20→20:43)
[2018-10-07] MEDS: POLYETHYLENE GLYCOL 17 GM PACKET PO ×2 (08:20→20:43)
[2018-10-07] MEDS: ISOSORBIDE MONONITRATE(SR)60 MG TAB PO (08:20)
[2018-10-07] MEDS: SENNA/DOCUSATE NA (8.6MG/50MG) TAB PO (08:20)
[2018-10-07] MEDS: AMIODARONE 200 MG TAB PO ×2 (08:20→20:44)
[2018-10-07] MEDS: FUROSEMIDE 20 MG TAB PO (08:21)
[2018-10-07] MEDS: INSULIN ASPART [NOVOLOG] 3 ML PEN SC ×4 (09:08→20:47)
[2018-10-07] MEDS: ATORVASTATIN 20 MG TAB PO (20:43)
[2018-10-08] MEDS: ACCU-CHEK XX (02:00)
[2018-10-08] MEDS: LINACLOTIDE 145 MCG XX ×2 (06:00→14:05)
[2018-10-08] MEDS: [UNRECOGNIZED DRUG - OTHER] XX ×2 (06:00→14:05)
[2018-10-08] MEDS: LEVOTHYROXINE 25 MCG TAB PO (06:36)
[2018-10-08] MEDS: PANTOPRAZOLE (EC) 40 MG TAB PO (06:38)
[2018-10-08] MEDS: INSULIN ASPART [NOVOLOG] 3 ML PEN SC ×2 (07:43→12:49)
[2018-10-08] MEDS: POLYETHYLENE GLYCOL 17 GM PACKET PO (08:02)
[2018-10-08] MEDS: THIAMINE 100 MG TAB PO (08:02)
[2018-10-08] MEDS: SENNA/DOCUSATE NA (8.6MG/50MG) TAB PO (08:02)
[2018-10-08] MEDS: AMIODARONE 200 MG TAB PO (08:02)
[2018-10-08] MEDS: APIXABAN 5 MG TABLET PO (08:02)
[2018-10-08] MEDS: FUROSEMIDE 20 MG TAB PO (08:03)
[2018-10-08] MEDS: ISOSORBIDE MONONITRATE(SR)60 MG TAB PO (08:03)
== END 2018-10-08 17:49 | disposition hospice, home (50) | DRG 311 ==
LOC: 6WM 19:30 → E/R 13:35 → 6WM 15:38
PROC: 5A09457 Assistance with Respiratory Ventilation, 24-96 Consecutive Hours, Continuous Positive Airway Pressure (ICD-10-PCS; principal; 2018-10-03)
DX: I24.9 Acute ischemic heart disease, unspecified (principal); I13.0 Hypertensive heart and chronic kidney disease with heart failure and stage 1 through stage 4 chronic kidney disease, or unspecified chronic kidney disease; I25.119 Atherosclerotic heart disease of native coronary artery with unspecified angina pectoris; N18.9 Chronic kidney disease, unspecified; I48.0 Paroxysmal atrial fibrillation; D64.9 Anemia, unspecified; E78.5 Hyperlipidemia, unspecified; Z66 Do not resuscitate; I50.9 Heart failure, unspecified; Z51.5 Encounter for palliative care; I25.2 Old myocardial infarction; I48.2 Chronic atrial fibrillation; I08.0 Rheumatic disorders of both mitral and aortic valves; R62.7 Adult failure to thrive; K59.00 Constipation, unspecified; E03.9 Hypothyroidism, unspecified; Z53.29 Procedure and treatment not carried out because of patient's decision for other reasons
CPT/HCPCS: 36415; 71045; 80048; 80053; 80061; 82962; 83036; 83690; 83735; 83880; 84100; 84443; 84484; 85025; 85610; 85730; 93005; 93970; 94660; 96374; 99285-25